=== PATIENT | female | born 1985 | race Caucasian/White ===

== ENCOUNTER 2018-11-23 13:48 | Emergency (ER) | payer OTHER, MEDICAID, SELFPAY ==
[2018-11-23 13:53] VITALS: BP 132/86; PULSE 108; RESP 20; TEMP 36.9; O2SAT 97; BMI 33.3
[2018-11-23 14:14] LABS: Appearance Urine UA SL CLOUDY; Bilirubin Urine UA NEGATIVE (NEGATIVE); Color Urine UA YELLOW; Glucose Urine UA NEGATIVE (Negative); Ketones Urine UA NEGATIVE (NEGATIVE); Leukocyte Esterase Urine UA 2+ (NEGATIVE); Nitrite Urine UA NEGATIVE (Negative); Occult Blood Urine UA TRACE-LYSED (Negative); Protein Urine UA NEGATIVE (Negative); Specific Gravity Urine UA >=1.030 (1.000-1.035); Urobilinogen Urine UA 0.2 E.U./dL (0.2)
[2018-11-23 14:23] LABS: RBC Urine 1-5/HPF (0-5/HPF); WBC Urine 10-30/HPF (0-5/HPF)
[2018-11-23 14:24] LABS: Bacteria Urine Moderate (10-30); Mucus Urine 2+ (Negative); Squamous Epithelial Cell Urine 10-30 /HPF
[2018-11-23 15:30] VITALS: BP 128/76; PULSE 88; RESP 17; TEMP 37.3; O2SAT 99
--- NOTE | 2018-11-23 15:46 | PC.NURSE ---
Right ear pain and sinus pressure for several months. Was treated with antibiotics, steroids, and antihistamines and improved, but recently got worse again within last few days.
[2018-11-23 16:16] LABS: RBC Urine None Seen (0-5/HPF)
[2018-11-23 16:28] LABS: Squamous Epithelial Cell Urine 1-5 /HPF; WBC Urine 5-10/HPF (0-5/HPF)
--- NOTE | 2018-11-23 16:28 | ED.EAR ---
HPI - Ear Problem General Chief complaint: Ear Stated complaint: EAR INFECTION,RT SIDE,YEAST INFECTION Time Seen by Provider: 11/23/18 13:59 Source: patient Mode of arrival: ambulatory Limitations: no limitations History of Present Illness HPI Narrative: Patient complains of fullness and discomfort in her right ear. She states that she has been having the symptoms for about the last several months, but that only recently which she diagnosed ear infection. She states she finished her and steroids about week ago, but feels symptoms are getting worse again. She denies fever. She does admit to smoking cigarettes, and states that she is ?allergic to everything?. Patient states she has not seen ENT specialist doctor and the would be Emergency Department for her care. She states that she does not feel as though she an upper respiratory infection right now, but that she is congested. She states she has been congested for about the last 6 months. She states she is still smoking but is only smoking half a cigarette per day because it makes her feel bad. Patient does note that she has been somewhat lightheaded, the smoking also seems to make this worse. No vertigo. Patient states that she also feels as though she may have a yeast infection vaginally. She states she has had vaginal discharge and itching since near the end of her antibiotic course. She is also concerned that she may have a urinary tract infection, because her low back hurts. She denies dysuria however. No other complaints at this time. Related Data Home Medications Medication Instructions Recorded Confirmed [OTC COLD MEDICINE] #0 11/12/17 06/25/18 Previous Rx's Medication Instructions Recorded albuterol sulfate [Proventil HFA] 2 puff IH Q6HP PRN #1 inh 05/16/17 cyclobenzaprine 5 mg PO Q8HP PRN #10 tab 02/20/18 fluconazole 150 mg tablet 150 mg PO ONCE #2 tab 07/29/18 permethrin 5 % topical cream 1 applictn TOP ONCE #60 gram 07/30/18 sulfamethoxazole-trimethoprim 1 tab PO BID #14 tab 11/23/18 [Bactrim DS] Allergies Allergy/AdvReac Type Severity Reaction Status Date / Time erythromycin base Allergy Mild HIVES Verified 06/25/18 10:02 [ERYTHROMYCIN BASE] latex [LATEX] Allergy Mild RASH Verified 06/25/18 10:02 Review of Systems Review of Systems All systems reviewed & are unremarkable except as noted in HPI and below Constitutional Denies chills, Denies fever(s), Denies lethargy and Denies weakness Eyes Denies change in vision, Denies eye discharge, Denies irritation and Denies loss of vision ENT Ears, Nose, Mouth, and Throat: Denies change in voice, Denies neck pain and Denies sore throat Comments: Ear pain Cardiovascular Denies chest pain, Denies irregular heart rhythm, Reports lightheadedness, Denies palpitations, Denies dyspnea, Denies dyspnea on exertion and Denies orthopnea Respiratory Denies cough, Denies dyspnea, Denies dyspnea on exertion and Denies wheezing Gastrointestinal Gastrointestinal: Denies abdominal pain, Denies change in bowel habits, Denies diarrhea, Denies nausea and Denies vomiting Genitourinary Denies hematuria, Denies flank pain, Denies urinary incontinence and Denies urinary urgency Musculoskeletal Denies neck pain Integumentary/Breasts Denies pruritus, Denies erythema, Denies rash and Denies wounds Neurologic Denies confusion, Denies loss of vision and Denies weakness Psychiatric Denies anxiety, Denies confusion, Denies depression, Denies homicidal ideation and Denies suicidal ideation Endocrine Denies palpitations Hematologic/Lymphatic Denies easy bruising Allergic/Immunologic Denies wheezing [facility] Medical History Ankle pain (Chronic 2009) Anxiety (Chronic) Asthma (Chronic 2009) Bipolar disorder (Chronic ~2009) Depression (Chronic) Foot pain (Chronic 2011) Hayfever (Chronic 1989) Herpes (Chronic 2011) Chicken pox (Resolved) Gestational diabetes (Resolved 2012) Surgical History Status post delivery (Resolved 04/19/12) Status post delivery (Resolved 07/15/13) Family History Brother Age: 36 Asthma Father Age: 56 Diabetes mellitus Hypertension High cholesterol Mother No problems noted. Sister No problems noted. Social History Smoking Status: Current every day smoker Exam Initial Vital Signs Initial Vital Signs: Vital Signs Temperature 98.4 F 11/23/18 13:53 Pulse Rate 108 H 11/23/18 13:53 Respiratory Rate 20 11/23/18 13:53 Blood Pressure 132/86 11/23/18 13:53 Pulse Oximetry 97 11/23/18 13:53 Const General: cooperative and well developed Nutritional Appearance: well nourished Orientation: alert, awake, oriented x3 and not confused [facility] Head: normocephalic and atraumatic Ears: external ears normal and TM's normal bilaterally Nose: external nose normal and No nasal discharge Face and sinus: sinuses nontender, face symmetric, no sinus tenderness and No dry mucous membranes Mouth: oral mucosae normal and moist mucous membranes Teeth and gingiva: dentition normal Eyes General: appearance normal, both eyes and all related structures Eyelids: eyelids normal Conjunctivae: conjunctivae normal Sclera: sclerae normal Pupils: PERRL EOM: EOM intact bilaterally Neck Neck: normal visual inspection, trachea midline, No lymphadenopathy, No midline deformity and No JVD Lymphatic: No lymphedema Chest Chest: normal inspection of the chest Resp Effort & Inspection: normal respiratory effort, able to speak in complete sentences, no respiratory distress and no use of accessory muscles Auscultation: clear to auscultation bilaterally, no rales, no rhonchi and no wheezes Cardio Rate: regular rate Rhythm: regular rhythm Heart Sounds: no click, no gallops, no murmurs and no rubs Pulses: normal peripheral pulses GI Inspection: non-distended Palpation: soft, no hepatosplenomegaly, No guarding, No pulsatile mass and No tender Back/Spine/Pelvis Back: No CVA tenderness Cervical Spine: cervical ROM normal and No pain with cervical ROM Thoracic/Lumbar Spine: thoracic and lumbar spine normal to inspection Skin General: no rashes or lesions noted, No jaundice and No petechiae Neuro General: alert, oriented x3, gait normal and no focal motor deficits Speech: speech normal Extrem General: full ROM, no clubbing, cyanosis or edema, no pedal edema and no calf tenderness Psych Appearance: well kempt Mental Status: mental status grossly normal Attitude: cooperative Thought Content: normal and suicidality Judgment: judgment good Course Course Narrative: Patient was treated presumptively for yeast infection, given her recent antibiotic course, but was also found to have findings on UA consistent probable UTI, especially given her back pain and discomfort. I started her on a course of antibiotics for this as well. Patient is advised follow-up with her primary care physician, and we have discussed the usual indications for return. Orders Ordered: Discontinued Medications Fluconazole (Diflucan) 150 mg PO NOW ONE Stop: 11/23/18 16:29 Last Admin: 11/23/18 16:58 Dose: 150 mg Vital Signs - 8 hr 11/23/18 13:53 11/23/18 15:30 Temperature 98.4 F 99.1 F Pulse Rate 108 H 88 Respiratory Rate 20 17 Blood Pressure 132/86 Blood Pressure [Left Arm] 128/76 Pulse Oximetry 97 99 Medical Decision Making Medical Records Medical records reviewed: Yes I reviewed the patient's medical records. Lab Data Lab results reviewed: Yes I reviewed the patient's lab results. Lab Results 11/23/18 11/23/18 Range/Units 13:55 15:45 Urine Color Yellow Urine Appearance Sl cloudy Urine pH 5.0 (4.5-8.0) Ur Specific Caney >=1.030 H (1.000-1.035) Urine Protein Negative (Negative) Urine Glucose (UA) Negative (Negative) g/dL Urine Ketones Negative (NEGATIVE) Urine Occult Blood Trace-lysed (Negative) Urine Nitrate Negative (Negative) Urine Bilirubin Negative (NEGATIVE) Urine Urobilinogen 0.2 (0.2) E.U./dL Ur Leukocyte Esterase 2+ H (NEGATIVE) Urine RBC 1-5/hpf None seen (0-5/HPF) Urine WBC 10-30/hpf H 5-10/hpf H (0-5/HPF) Ur Squamous Epith Cells 10-30 /hpf H 1-5 /hpf D Amorphous Sediment 2+ Urine Bacteria Moderate (10-30) H Moderate (10-30) H (None) Urine Mucus 2+ H 2+ H (Negative) Ur Culture Indicated? Not Reportable Specimen cultured Micro UA Comment Not Reportable Point of Care Testing Test Results Negative Urine Dip Bedside Urine Glucose Negative Bedside Urine Bilirubin + 1 Bedside Urine Ketone +/- 5 Urine Specific Caney 1.030 Bedside Urine Occult Blood - Negative Bedside Urine pH 5.0 Bedside Urine Protein +/- 15 Bedside Urine Urobilinogen 1+ 2mg Bedside Urine Nitrite - Negative Bedside Urine Leukocytes +++ 500 Esterase Point of care testing: Point of Care Testing Test Results Negative Urine Dip Bedside Urine Glucose Negative Bedside Urine Bilirubin + 1 Bedside Urine Ketone +/- 5 Urine Specific Caney 1.030 Bedside Urine Occult Blood - Negative Bedside Urine pH 5.0 Bedside Urine Protein +/- 15 Bedside Urine Urobilinogen 1+ 2mg Bedside Urine Nitrite - Negative Bedside Urine Leukocytes +++ 500 Esterase Discharge Plan Departure Patient Disposition: Home Clinical Impression: UTI (urinary tract infection), Yeast infection Discharge Date/Time: 11/23/18 17:22 Interventions: ED Discharge Assessment Last Done: 11/23/18 17:22 Instructions: DI for Vaginal Yeast Infection, DI for Urinary Tract Infection (UTI) Prescriptions: New sulfamethoxazole-trimethoprim [Bactrim DS] 800-160 mg tablet 1 tab PO BID Qty: 14 RF: 0 No Action albuterol sulfate [Proventil HFA] 90 MCG/PUFF HFA aerosol inhaler 2 puff IH Q6HP PRNQty: 1 RF: 2 [OTC COLD MEDICINE] Qty: 0 RF: 0 cyclobenzaprine 5 MG tablet 5 mg PO Q8HP PRNQty: 10 RF: 0 fluconazole [Diflucan] 150 mg tablet 150 mg PO ONCE Qty: 2 RF: 0 permethrin 5 % cream 1 applictn TOP ONCE Qty: 60 RF: 0 Referrals: Jonas De Luna MD [Primary Care Provider] -
[2018-11-23 16:29] LABS: Amorphous Sediment Urine 2+; Bacteria Urine Moderate (10-30); Culture Indicated Urine Specimen Cultured; Mucus Urine 2+ (Negative)
[2018-11-23] MEDS: FLUCONAZOLE 150 MG TABLET PO (16:58)
[2018-11-23 17:19] VITALS: BP 128/78; PULSE 83; RESP 14; O2SAT 100
== END 2018-11-23 17:22 | disposition home or self-care (01) ==
PROVIDERS: Emergency Provider Emergency Medicine; PCP Family Medicine
DX: N39.0 Urinary tract infection, site not specified (principal); B37.9 Candidiasis, unspecified
CPT/HCPCS: 81001; 81003; 81015; 81025; 87077; 87086; 99283

== ENCOUNTER 2019-01-26 08:41 | Emergency (ER) | payer OTHER, MEDICAID, SELFPAY ==
[2019-01-26 09:03] VITALS: BP 141/99; PULSE 120; RESP 20; TEMP 36.7; O2SAT 100; BMI 30.7
--- NOTE | 2019-01-26 09:37 | ED_ITS ---
HPI - Fever General Chief Complaint: Fever Stated Complaint: fever,coughing,sore on knee/back of head Time Seen by Provider: 01/26/19 09:00 Source: patient Mode of arrival: ambulatory Limitations: no limitations History of Present Illness HPI Narrative: Patient is a 33-year-old female who presents sobriety of complaints. Mostly upper respiratory symptoms of runny nose cough is congestion. This been ongoing for about a week she was seen evaluated [facility] for the same was not given any antibiotics at that time. Just wanted to be re-evaluated. She does not feel like she is getting any better. She also now has a spot is in the back of her head and scalp and also on her knee. As she says the very tender to touch. She fell in her bathroom while cleaning about a week ago is and her left knee she has some pain is an drainage. There is also a scabbed over part of her scalp is not draining but she says is very tender. MD complaint: fever, malaise and weakness Related Data Home Medications Medication Instructions Recorded Confirmed [OTC COLD MEDICINE] #0 11/12/17 06/25/18 Previous Rx's Medication Instructions Recorded albuterol sulfate [Proventil HFA] 2 puff IH Q6HP PRN #1 inh 05/16/17 cyclobenzaprine 5 mg PO Q8HP PRN #10 tab 02/20/18 fluconazole 150 mg tablet 150 mg PO ONCE #2 tab 07/29/18 permethrin 5 % topical cream 1 applictn TOP ONCE #60 gram 07/30/18 sulfamethoxazole-trimethoprim 1 tab PO BID #14 tab 11/23/18 [Bactrim DS] Allergies Allergy/AdvReac Type Severity Reaction Status Date / Time erythromycin base Allergy Mild HIVES Verified 01/26/19 09:08 [ERYTHROMYCIN BASE] latex [LATEX] Allergy Mild RASH Verified 01/26/19 09:08 Review of Systems Review of Systems ROS Unobtainable: All systems reviewed & are unremarkable except as noted in HPI and below Constitutional Reports body ache(s), Reports chills, Reports fatigue and Reports fever(s) Eyes Denies change in vision, Denies eye discharge, Denies irritation and Denies loss of vision ENT Ears, Nose, Mouth, and Throat: Denies change in voice, Denies neck pain and Denies sore throat Cardiovascular Denies dyspnea and Denies dyspnea on exertion Respiratory Denies cough, Denies dyspnea, Denies dyspnea on exertion and Denies wheezing Gastrointestinal Gastrointestinal: Denies abdominal pain, Denies change in bowel habits, Denies diarrhea, Denies nausea and Denies vomiting Musculoskeletal Denies neck pain Integumentary/Breasts Reports as per HPI Neurologic Denies loss of vision Endocrine Reports fatigue Allergic/Immunologic Denies wheezing [facility] Social History Smoking Status: Current every day smoker Exam Initial Vital Signs Initial Vital Signs: Vital Signs Temperature 98.1 F 01/26/19 09:03 Pulse Rate 120 H 01/26/19 09:03 Respiratory Rate 20 01/26/19 09:03 Blood Pressure 141/99 H 01/26/19 09:03 Pulse Oximetry 100 01/26/19 09:03 GENERAL: Well-appearing, well-nourished and in no acute distress. HEENT: Head atraumatic,EOMI, pupils reactive, face symmetric, moist mucous membranes EARS: Tympanic membranes visualized, no erythema or bulging, no hemotympanum PHARYNX: No erythema, no tonsillar exudate, no cervical lymphadenopathy CARDIOVASCULAR: Regular rate and rhythm without murmurs, rubs or gallops. RESPIRATORY: Breath sounds equal bilaterally, no wheezes rales or rhonchi. ABDOMEN: Soft, nontender. Normoactive bowel sounds all 4 quadrants. No guarding or rebound. EXTREMITIES: Normal range of motion, no clubbing or edema. Neurovascularly intact NEUROLOGICAL: Alert and oriented x4.Normal gait and speech. Cranial nerves II through XII grossly intact. SKIN: Left knee no erythema no fluctuation is. She does have small abrasions seems to be healing. Scalp area left side small scabbed over region no fluctuation no erythema tender to touch home no drainable abscess. Course Orders Ordered: ED Orders 01/26/19 09:19 Influenza A and B by PCR Rapid Stat Vital Signs - 8 hr 01/26/19 09:03 Temperature 98.1 F Pulse Rate 120 H Respiratory Rate 20 Blood Pressure 141/99 H Pulse Oximetry 100 MDM - Fever Lab Data Lab Results 01/26/19 Range/Units 09:19 Influenza A & B (PCR) Negative (Negative) Discharge Plan Departure Patient Disposition: Home Clinical Impression: Acute upper respiratory infection Discharge Date/Time: 01/26/19 10:10 Interventions: ED Discharge Assessment Last Done: 01/26/19 10:10 Instructions: DI for Viral Upper Respiratory Infection -- Adult Activity Restrictions/Additional Instructions: *You have been diagnosed with upper respiratory infection *What to do: At this time no need for antibiotics. Recommend applying antibiotic ointment to both me and scalp 1-2 times daily to help with healing. *Continue to take medications as directed *Follow up with your primary care provider in 2-3 days *Return to ER if you should have worsening cough, difficulty breathing, fever not controlled, redness around sores or any new, worsening or concerning symptoms Prescriptions: No Action albuterol sulfate [Proventil HFA] 90 MCG/PUFF HFA aerosol inhaler 2 puff IH Q6HP PRNQty: 1 RF: 2 [OTC COLD MEDICINE] Qty: 0 RF: 0 cyclobenzaprine 5 MG tablet 5 mg PO Q8HP PRNQty: 10 RF: 0 fluconazole [Diflucan] 150 mg tablet 150 mg PO ONCE Qty: 2 RF: 0 permethrin 5 % cream 1 applictn TOP ONCE Qty: 60 RF: 0 sulfamethoxazole-trimethoprim [Bactrim DS] 800-160 mg tablet 1 tab PO BID Qty: 14 RF: 0 Referrals: Jonas De Luna MD [Primary Care Provider] - Stand Alone Forms: Work Release Note
[2019-01-26 09:50] LABS: Influenza A and B by PCR Rapid Negative (Negative)
== END 2019-01-26 10:10 | disposition home or self-care (01) ==
LOC: ED 10:07
PROVIDERS: Emergency Provider Emergency Medicine; PCP Family Medicine
DX: J06.9 Acute upper respiratory infection, unspecified (principal)
CPT/HCPCS: 36415; 87400; 99282

== ENCOUNTER → 2019-02-17 08:31 | Outpatient (CLI) | payer OTHER, MEDICAID, SELFPAY ==
[2019-02-17 08:39] LABS: RBC Urine None Seen (0-5/HPF)
[2019-02-17 09:03] LABS: Appearance Urine UA SL CLOUDY; Bilirubin Urine UA NEGATIVE (NEGATIVE); Color Urine UA YELLOW; Glucose Urine UA NEGATIVE (Negative); Ketones Urine UA NEGATIVE (NEGATIVE); Leukocyte Esterase Urine UA 1+ (NEGATIVE); Nitrite Urine UA NEGATIVE (Negative); Occult Blood Urine UA NEGATIVE (Negative); Protein Urine UA NEGATIVE (Negative); Urobilinogen Urine UA 0.2 E.U./dL (0.2)
[2019-02-17 09:05] LABS: Add Manual Diff / Slide Review NO; Basophils Absolute Auto 0 /uL (0-100); Basophils Percent Auto 0.5 % (0-2); Eosinophils Absolute Auto 200 /uL (0-450); Eosinophils Percent Auto 2.9 % (2-4); Hematocrit 40.8 % (36-46); Hemoglobin 13.8 g/dL (12.0-16.0); Lymphocytes Absolute Auto 2100 /uL (1100-4500); Lymphocytes Percent Auto 34.5 % (25-40); Mean Corpuscular HGB Conc 33.9 % (30-36); Mean Corpuscular Hemoglobin 30.7 PG (26-34); Mean Corpuscular Volume 90.6 fL (80-100); Monocytes Absolute Auto 400 /uL (0-900); Monocytes Percent Auto 6.7 % (3-14); Neutrophils Absolute Auto 3400 /uL (1500-7000); Neutrophils Percent Auto 55.4 % (50-75); Platelet Count 270 X10^3/uL (150-400); Red Blood Cell Count 4.51 X10^6/uL (4.0-5.2); Red Cell Distribution Width 14.3 % (11.6-14.8)
[2019-02-17 09:09] LABS: Alanine Aminotransferase 44 IU/L (9-52); Albumin 4.3 g/dL (3.5-5.0); Albumin Globulin Ratio 1.4 (1.0-2.8); Alkaline Phosphatase 76 U/L (38-126); Aspartate Aminotransferase 30 IU/L (14-36); Bilirubin Total 0.5 mg/dL (0.2-1.3); Blood Urea Nitrogen 16 mg/dL (7-17); Calcium 9.2 mg/dL (8.4-10.2); Carbon Dioxide 25 mmol/L (22-32); Chloride 103 mmol/L (98-107); Estimated Glomerular Filt Rate > 60.0 mL/min (>60); Globulin 3.1 g/dL (1.7-4.1); Glucose 68 mg/dL (70-100); HEMOLYSIS < 15 (0-50); Potassium 4.6 mmol/L (3.4-5.1); Sodium 137 mmol/L (137-145); Total Protein 7.4 g/dL (6.3-8.2)
[2019-02-17 09:11] LABS: Bacteria Urine Moderate (10-30); Culture Indicated Urine Specimen Cultured; Squamous Epithelial Cell Urine 1-5 /HPF; WBC Urine 30-100/HPF (0-5/HPF)
== END ==
PROVIDERS: PCP Family Medicine; Visit Provider Family Medicine
DX: R30.0 Dysuria (principal); J06.9 Acute upper respiratory infection, unspecified; R31.9 Hematuria, unspecified
CPT/HCPCS: 36415; 80053; 81001; 85025; 87077; 87086; 87186

== ENCOUNTER 2019-10-02 10:50 | Emergency (ER) | payer OTHER, MEDICAID, SELFPAY ==
[2019-10-02 11:14] VITALS: BP 101/67; PULSE 89; RESP 14; TEMP 36.7; O2SAT 98
--- NOTE | 2019-10-02 11:51 | ED.LOWEXIN ---
HPI - Extremity Injury (Lower) <PATRIZIA Fung - Last Filed: 10/02/19 15:53> General Chief Complaint: Extremity Injury, Lower Stated Complaint: big toes hurting both feet and crushed her toes Time Seen by Provider: 10/02/19 11:43 Source: patient Mode of arrival: Ambulatory Limitations: no limitations History of Present Illness HPI Narrative: The patient is a 33-year-old female current smoker with history of bipolar to presents with a chief complaint of bilateral toe pain. She states that she crushed her feet between a door approximately 3-4 days ago. She has taken a few doses of Tylenol for this she states that she accidentally ripped her toenails up, denies any fevers nausea vomiting or diarrhea. She states her tetanus is up-to-date within the past 5 years. She is concerned about developing infection where she wrapped up her toenails. She states she is able to ambulate and bear weight. She has not rested, iced or elevated her feet. Related Data Previous Rx's Medication Instructions Recorded cetirizine 10 mg tablet 10 mg PO DAILY #90 tab 05/12/19 cyclobenzaprine 10 mg tablet 10 mg PO BEDTIME #30 tab 06/01/19 clonidine HCl 0.2 mg tablet 0.2 mg PO BID #60 tab 07/29/19 risperidone 1 mg tablet 1 mg PO BEDTIME #30 tab 07/29/19 albuterol sulfate 90 mcg/actuation 2 puff INHALATION Q6HP PRN #1 09/01/19 aerosol inhaler inhalation albuterol sulfate 2.5 mg INHALATION Q4-6H PRN #90 ml 09/02/19 Allergies Allergy/AdvReac Type Severity Reaction Status Date / Time erythromycin base Allergy Mild HIVES Verified 10/02/19 11:19 [ERYTHROMYCIN BASE] latex [LATEX] Allergy Mild RASH Verified 10/02/19 11:19 Review of Systems <PATRIZIA Fung - Last Filed: 10/02/19 15:53> Review of Systems Narrative: GENERAL: Denies chills, fatigue, malaise, fever, sweats. HEENT: Denies sinus pain, ear pain, sore throat, difficulty swallowing, dizziness. RESPIRATORY: Denies dyspnea, cough, wheezing, hemoptysis, sputum. CARDIOVASCULAR: Denies chest pain, palpitations, orthopnea, edema, GASTROINTESTINAL: Denies nausea, vomiting, abdominal pain, diarrhea, constipation, melena. : Denies dysuria, frequency, incontinence, hematuria, urinary retention. MUSCULOSKELETAL: See HPI SKIN: See HPI NEUROLOGIC: Denies weakness, headache, numbness, change in speech, confusion, seizures, incoordination. PSYCHIATRIC: No concerning psychosocial issues. 12 point review of systems is negative except for those stated above Patient History <PATRIZIA Fung - Last Filed: 10/02/19 15:53> Medical History Ankle pain (Chronic 2009) Anxiety (Chronic) Asthma (Chronic 2009) Bipolar disorder (Chronic ~2009) Chicken pox (Resolved) Depression (Chronic) Foot pain (Chronic 2011) Gestational diabetes (Resolved 2012) Hayfever (Chronic 1989) Herpes (Chronic 2011) Surgical History Status post delivery (Resolved 04/19/12) Status post delivery (Resolved 07/15/13) Family History Brother Age: 37 Asthma Father Age: 57 Diabetes mellitus Hypertension High cholesterol Mother No problems noted. Sister No problems noted. Social History marital status: Smoking Status: Current every day smoker alcohol intake: current (ON OCCASION ) substance use type: does not use alcohol intake frequency: a few times a month Substance Use Type: does not use Exam <PATRIZIA Fung - Last Filed: 10/02/19 15:53> Narrative Exam Narrative: GENERAL: This is a well-nourished, well-developed patient, in no acute distress HEAD: Atraumatic. Normocephalic. No temporal or scalp tenderness. EYES: Pupils equal round and reactive. Extraocular motions intact. No scleral icterus. No injection or drainage. ENT: Nose without bleeding, purulent drainage or septal hematoma. Throat without erythema, tonsillar hypertrophy or exudate. Uvula midline. Airway patent. NECK: Trachea midline. No JVD or lymphadenopathy. Supple, nontender, no meningeal signs. CARDIOVASCULAR: Regular rate and rhythm RESPIRATORY: No cough. No increased respiratory effort. No accessory muscle use. EXTREMITIES: Positive pedal pulses bilaterally. Able to flex and extend bilateral toes. Capillary refill less than 2 seconds. No pain to palpation bilateral feet or navicular. BACK: Nontender without deformity or crepitance. No flank tenderness. NEURO: AOx3. SKIN: Diffuse ecchymosis noted over bilateral great toes. Skin is intact. Dried blood noted lateral aspect right great toenail. No spreading erythema or drainage noted Initial Vital Signs Initial Vital Signs: Vital Signs Temperature 98.1 F 10/02/19 11:14 Pulse Rate 89 10/02/19 11:14 Respiratory Rate 14 10/02/19 11:14 Blood Pressure 101/67 10/02/19 11:14 Pulse Oximetry 98 10/02/19 11:14 <Steve Tony DO - Last Filed: 10/03/19 09:21> Initial Vital Signs Initial Vital Signs: Vital Signs Temperature 98.1 F 10/02/19 11:14 Pulse Rate 89 10/02/19 11:14 Respiratory Rate 14 10/02/19 11:14 Blood Pressure 101/67 10/02/19 11:14 Pulse Oximetry 98 10/02/19 11:14 Course <PATRIZIA Fung - Last Filed: 10/02/19 15:53> Vital Signs Vital signs: Vital Signs - 8 hr 10/02/19 11:14 10/02/19 12:15 Temperature 98.1 F 98.2 F Pulse Rate 89 72 Respiratory Rate 14 16 Blood Pressure 101/67 Blood Pressure [Right Arm] 122/68 Pulse Oximetry 98 98 <Steve Tony DO - Last Filed: 10/03/19 09:21> Vital Signs Vital signs: Vital Signs - 8 hr 10/02/19 11:14 10/02/19 12:15 Temperature 98.1 F 98.2 F Pulse Rate 89 72 Respiratory Rate 14 16 Blood Pressure 101/67 Blood Pressure [Right Arm] 122/68 Pulse Oximetry 98 98 MDM - Extremity Injury (Lower) <PATRIZIA Fung - Last Filed: 10/02/19 15:53> MDM Narrative Medical decision making narrative: The patient is a 33-year-old female who presents with a chief complaint of bilateral foot pain. Her tetanus is up-to-date. She has no signs of infection on her feet. I discussed the pros and cons of an x-ray with her at this point time, but she declines x-ray. Given that she is , I am okay with this and we discussed the risks and benefits of radiation. I discussed rest, Tylenol, Epsom salt soaks etc. Encourage PCP follow-up. Patient has no questions or concerns upon discharge. Discharge Plan Departure Patient Disposition: Home Clinical Impression: Bilateral foot pain Discharge Date/Time: 10/02/19 12:20 Instructions: How To Perform RICE (Rest, Ice, Compress, Elevate), DI for Foot Pain Activity Restrictions/Additional Instructions: As discussed, have elected to hold off on x-rays due to radiation as you are . Please use rest ice compression elevation. I also suggest Epsom salt soaks to help prevent nail bed infections. Please follow up with primary care provider next few days. Please watch out for inability to bear weight or any other acute concerns. Etc. Prescriptions: No Action cetirizine 10 mg tablet 10 mg PO DAILY Qty: 90 RF: 3 cyclobenzaprine 10 mg tablet 10 mg PO BEDTIME Qty: 30 RF: 0 clonidine HCl 0.2 mg tablet 0.2 mg PO BID Qty: 60 RF: 3 risperidone 1 mg tablet 1 mg PO BEDTIME Qty: 30 RF: 3 albuterol sulfate 2.5 mg /3 mL (0.083 %) solution for nebulization 2.5 mg INHALATION Q4-6H PRN (Reason: bronchospasm) Qty: 90 RF: 0 albuterol sulfate [Proventil HFA] 90 mcg/actuation HFA aerosol inhaler 2 puff inhalation Q6HP PRN (Reason: shortness of breath or wheezing) Qty: 1 RF: 11 Referrals: Jonas De Luna MD [Primary Care Provider] -
[2019-10-02 12:15] VITALS: BP 122/68; PULSE 72; RESP 16; TEMP 36.8; O2SAT 98
== END 2019-10-02 12:20 | disposition home or self-care (01) ==
PROVIDERS: Emergency Provider Nurse Practitioner Family; PCP Family Medicine
DX: M79.671 Pain in right foot (principal); M79.672 Pain in left foot; W23.0XXA Caught, crushed, jammed, or pinched between moving objects, initial encounter
CPT/HCPCS: 99282

== ENCOUNTER → 2019-10-27 13:57 | Outpatient (CLI) | payer OTHER, MEDICAID, SELFPAY ==
--- NOTE | 2019-10-27 13:58 | DI.US.S_ITS ---
PROCEDURE: US OB >= 14 WEEKS FETUS INDICATIONS: DATES OUTSIDE/PRIOR DATING DATA: Last menstrual period (LMP): 06/26/19. LMP-based estimated date of delivery (SRI): 04/01/20. First dating scan (date and location): 10/27/19. Estimated date of delivery (SRI) from first dating scan: 03/11/20. TECHNIQUE: Real-time scanning was performed of the fetus, with image documentation and biometric measurements. COMPARISON: None. FINDINGS: General: A single living intrauterine gestation is present. Presentation: Vertex. Placenta: Placental position is fundal, without previa. Amniotic fluid index: 17.9 cm, normal range is 5-24 cm. heart rate: 155 beats per minute. Maternal cervical canal: 3.5 cm long. Normal lower limit is 2.5 cm. biometrics: Biparietal diameter: 20 weeks 2 days Head circumference: 20 weeks 1 day Abdominal circumference: 20 weeks 4 days Femur length: 21 weeks 3 days Estimated gestational age from initial scan: not applicable. Composite gestational age from present scan: 20 weeks 4 days Estimated weight and percentile: 381 g Measurement variability for biometric dating: +/- 7 days from 14 weeks to 15 weeks 6 days gestation, +/- 10 days from 16 weeks to 21 weeks 6 days gestation, +/- 2 weeks from 22 weeks to 27 weeks 6 days gestation, +/- 3 weeks for 28 weeks gestation or later. weight reference: 4500 g or EFW >90/95% is considered macrosomia or large for gestational age. EFW <10% is small for gestational age. EFW 5% or less is considered intra-uterine growth restriction. Anatomic survey: Neuro: Ventricles are non-dilated at less than 10 mm. Cisterna magna is normal at 3-11 mm. Cerebellum is normal in size and morphology. Nuchal skin fold: Normal at less than 6 mm between 14-21 weeks gestational age. Face: Nose and lips, facial profile are normal. Spine: No evidence for spina bifida. Heart: 4-chambered heart is present, with normal ventricular outflow tracts. Diaphragm: Diaphragm is intact. Stomach: Left-sided stomach is present. Kidneys: No hydronephrosis. Normal is less than 5 mm in 2nd trimester, less than 7 mm in 3rd trimester. Cord: 3-vessel cord has orthotopic insertion. Bladder: Normal in size. Extremities: All 4 extremities identified. IMPRESSION: 1. Valdes IUP with mean composite gestational age of 20 weeks 4 days corresponding to ultrasound SRI of 03/11/20. 2. Normal anatomic survey. Dictated by: Ja NEGRETE Interpreted: Lesly Sanchez MD on 10/27/2019 at 15:20 Approved by: Lesly Sanchez M.D. on 10/27/2019 at 15:47
== END ==
PROVIDERS: PCP Family Medicine; Visit Provider Family Medicine
DX: Z34.92 Encounter for supervision of normal pregnancy, unspecified, second trimester (principal); Z3A.20 20 weeks gestation of pregnancy
CPT/HCPCS: 76811

== ENCOUNTER 2019-11-01 15:40 | Emergency (ER) | payer OTHER, MEDICAID, SELFPAY ==
[2019-11-01 16:15] VITALS: BP 138/87; PULSE 90; RESP 18; TEMP 36.7; O2SAT 99
--- NOTE | 2019-11-01 17:45 | PC.NURSE ---
21 weeks , reports headache, itchy throat, fever some nausea and vomiting onset of sxs yesterday, has been taking tylenol 500mg for discomfort and drinking water.
[2019-11-01 18:12] LABS: Influenza A - CEPHEID Flu A NEGATIVE (NEGATIVE); Influenza B - CEPHEID Flu B NEGATIVE (NEGATIVE)
[2019-11-01] MEDS: ONDANSETRON 4 MG ODT SL (18:18)
[2019-11-01] MEDS: ACETAMINOPHEN 325 MG TABLET 975 MG PO (18:18)
--- NOTE | 2019-11-01 18:27 | ED_ITS ---
HPI - Headache <PATRIZIA Fung - Last Filed: 11/01/19 20:11> General Chief Complaint: Headache Stated Complaint: really bad headache 2 days Time Seen by Provider: 11/01/19 17:50 Source: patient Mode of arrival: Ambulatory Limitations: no limitations History of Present Illness HPI Narrative: The patient is a 33-year-old female current smoker with history of bipolar 2 who presents with a chief complaint of frontal headache. She is 21 weeks at this point time. She states she has taken 500 mg of Tylenol for her headache, most recently at 10:00 a.m.. She also complains of sore throat, and some chills. She was nauseous, earlier today and had an episode of vomiting. Then she a in [place] muffin and mcnair and was able to keep down. She denies any abdominal pain. She denies any shortness of breath or chest pain. The patient denies any healing of lytes, blurry vision, double vision or light flashing. She states that the headache is not incapacitating. Related Data Previous Rx's Medication Instructions Recorded clonidine HCl 0.2 mg tablet 0.2 mg PO BID #60 tab 07/29/19 risperidone 1 mg tablet 1 mg PO BEDTIME #30 tab 07/29/19 albuterol sulfate 90 mcg/actuation 2 puff INHALATION Q6HP PRN #1 09/01/19 aerosol inhaler inhalation albuterol sulfate 2.5 mg INHALATION Q4-6H PRN #90 ml 09/02/19 cetirizine 10 mg tablet 10 mg PO DAILY #90 tab 10/26/19 prenat.vits,cristopher,[id number] 1 tab PO DAILY #90 tab 10/27/19 Allergies Allergy/AdvReac Type Severity Reaction Status Date / Time erythromycin base Allergy Mild HIVES Verified 10/26/19 14:02 [ERYTHROMYCIN BASE] latex [LATEX] Allergy Mild RASH Verified 10/26/19 14:02 Review of Systems <PATRIZIA Fung - Last Filed: 11/01/19 20:11> Review of Systems Narrative: GENERAL: Denies chills, fatigue, malaise, fever, sweats. HEENT: See HPI. RESPIRATORY: Denies dyspnea, cough, wheezing, hemoptysis, sputum. CARDIOVASCULAR: Denies chest pain, palpitations, orthopnea, edema, GASTROINTESTINAL: Denies nausea, vomiting, abdominal pain, diarrhea, constipation, melena. : Denies dysuria, frequency, incontinence, hematuria, urinary retention. MUSCULOSKELETAL: denies weakness, joint pain, or bony pain SKIN: Denies rash, skin lesions, or other NEUROLOGIC: See HPI PSYCHIATRIC: No concerning psychosocial issues. 12 point review of systems is negative except for those stated above Patient History <PATRIZIA Fung - Last Filed: 11/01/19 20:11> Medical History Ankle pain (Chronic 2009) Anxiety (Chronic) Asthma (Chronic 2009) Bipolar disorder (Chronic ~2009) Chicken pox (Resolved) Depression (Chronic) Foot pain (Chronic 2011) Gestational diabetes (Resolved 2012) Hayfever (Chronic 1989) Herpes (Chronic 2011) Surgical History Status post delivery (Resolved 04/19/12) Status post delivery (Resolved 07/15/13) Family History Brother Age: 37 Asthma Father Age: 57 Diabetes mellitus Hypertension High cholesterol Mother No problems noted. Sister No problems noted. Social History marital status: Smoking Status: Current every day smoker alcohol intake: current (ON OCCASION ) substance use type: does not use Smoking Status: Current every day smoker alcohol intake frequency: a few times a month Substance Use Type: does not use Exam <PATRIZIA Fung - Last Filed: 11/01/19 20:11> Narrative Exam Narrative: GENERAL: This is a well-nourished, well-developed patient, in no acute distress HEAD: Atraumatic. Normocephalic. No temporal or scalp tenderness. EYES: Pupils equal round and reactive. Extraocular motions intact. No scleral icterus. No injection or drainage. ENT: Nose without bleeding, purulent drainage or septal hematoma. Throat without erythema, tonsillar hypertrophy or exudate. Uvula midline. Airway patent. NECK: Trachea midline. No JVD or lymphadenopathy. Supple, nontender, no meningeal signs. CARDIOVASCULAR: Regular rate and rhythm without murmurs, gallops, or rubs. RESPIRATORY: Clear to auscultation. Breath sounds equal bilaterally. No wheezes, rales, or rhonchi. No cough. No increased respiratory effort. No accessory muscle use. GASTROINTESTINAL: Abdomen soft, non-tender, nondistended. No hepato- splenomegaly, or palpable masses. No guarding. EXTREMITIES: No clubbing, cyanosis, or edema. No joint tenderness, effusion, or edema noted. BACK: Nontender without deformity or crepitance. No flank tenderness. NEURO: AOx3. Interactive. Age appropriate. Stable gait. Using all extremities equally. On cell phone. SKIN: No rash or erythema on visible skin Initial Vital Signs Initial Vital Signs: Vital Signs Temperature 98.1 F 11/01/19 16:15 Pulse Rate 90 11/01/19 16:15 Respiratory Rate 18 11/01/19 16:15 Blood Pressure 138/87 11/01/19 16:15 Pulse Oximetry 99 11/01/19 16:15 <Jose Miguel Cho MD - Last Filed: 11/02/19 00:38> Initial Vital Signs Initial Vital Signs: Vital Signs Temperature 98.1 F 11/01/19 16:15 Pulse Rate 90 11/01/19 16:15 Respiratory Rate 18 11/01/19 16:15 Blood Pressure 138/87 11/01/19 16:15 Pulse Oximetry 99 11/01/19 16:15 Course <ALISSON Fung-BC - Last Filed: 11/01/19 20:11> Orders Ordered: ED Orders 11/01/19 17:39 Flu test [Influenza A & B (PCR)] Stat 11/01/19 18:20 Strep Grp A by PCR Rapid Stat Discontinued Medications Acetaminophen (Tylenol) 975 mg PO NOW ONE Stop: 11/01/19 18:11 Last Admin: 11/01/19 18:18 Dose: 975 mg Documented by: MEISENB Ondansetron HCl (Zofran Odt) 4 mg SL NOW ONE Stop: 11/01/19 18:11 Last Admin: 11/01/19 18:18 Dose: 4 mg Documented by: MEISENB Vital Signs Vital signs: Vital Signs - 8 hr 11/01/19 18:42 11/01/19 20:19 Pulse Rate 83 77 Respiratory Rate 16 14 Blood Pressure 131/74 Blood Pressure [Right Arm] 125/73 Pulse Oximetry 96 99 <Jose Miguel Cho MD - Last Filed: 11/02/19 00:38> Orders Ordered: ED Orders 11/01/19 17:39 Flu test [Influenza A & B (PCR)] Stat 11/01/19 18:20 Strep Grp A by PCR Rapid Stat Discontinued Medications Acetaminophen (Tylenol) 975 mg PO NOW ONE Stop: 11/01/19 18:11 Last Admin: 11/01/19 18:18 Dose: 975 mg Documented by: COLTON Ondansetron HCl (Zofran Odt) 4 mg SL NOW ONE Stop: 11/01/19 18:11 Last Admin: 11/01/19 18:18 Dose: 4 mg Documented by: COLTON Vital Signs Vital signs: Vital Signs - 8 hr 11/01/19 18:42 11/01/19 20:19 Pulse Rate 83 77 Respiratory Rate 16 14 Blood Pressure 131/74 Blood Pressure [Right Arm] 125/73 Pulse Oximetry 96 99 MDM - Headache <PATRIZIA Fung - Last Filed: 11/01/19 20:11> Lab Data Labs: Lab Results 11/01/19 11/01/19 Range/Units 17:39 18:20 Influenza A (RT-PCR) Flu a negative (NEGATIVE) Influenza B (RT-PCR) Flu b negative (NEGATIVE) Group A Strep (PCR) Negative Urine Dip Bedside Urine Glucose Negative Bedside Urine Bilirubin - Negative Bedside Urine Ketone - Negative Urine Specific [place] 1.010 Bedside Urine Occult Blood - Negative Bedside Urine pH 6.0 Bedside Urine Protein - Negative Bedside Urine Urobilinogen - Negative Bedside Urine Nitrite - Negative Bedside Urine Leukocytes - Negative Esterase MDM Narrative Medical decision making narrative: The patient is a 33-year-old female who presents with a chief complaint of a headache. She is 21 weeks at this point time. heart tones are in the 150s. She is negative for strep, negative for flu. She was given a single dose of Tylenol and Zofran and felt much improved. Her systolic blood pressures in the 120s, she does not have protein in her urine helping rule out early preeclampsia. Encouraged at length follow up with primary care provider. Discussed at length coming back to the emergency department for any acute concerns. Patient has no questions or concerns upon discharge and states understanding of return precautions as well as follow-up care <Jose Miguel Cho MD - Last Filed: 11/02/19 00:38> Lab Data Labs: Lab Results 11/01/19 11/01/19 Range/Units 17:39 18:20 Influenza A (RT-PCR) Flu a negative (NEGATIVE) Influenza B (RT-PCR) Flu b negative (NEGATIVE) Group A Strep (PCR) Negative Urine Dip Bedside Urine Glucose Negative Bedside Urine Bilirubin - Negative Bedside Urine Ketone - Negative Urine Specific [place] 1.010 Bedside Urine Occult Blood - Negative Bedside Urine pH 6.0 Bedside Urine Protein - Negative Bedside Urine Urobilinogen - Negative Bedside Urine Nitrite - Negative Bedside Urine Leukocytes - Negative Esterase Discharge Plan Departure Patient Disposition: Home Clinical Impression: Headache Qualifiers: Headache type: unspecified Headache chronicity pattern: acute headache Intractability: not intractable Qualified Code(s): R51 - Headache Discharge Date/Time: 11/01/19 20:21 Instructions: DI for Headache Activity Restrictions/Additional Instructions: Thank you for trusting us with your care today. Today we checked for flu strep. These came back negative. Your headache responded well to a single dose of Tylenol. Please push fluids and rest Your urine shows no signs of protein in your urine and blood pressure is good. Please come back to the emergency department for any acute concerns. Please follow-up with primary care provider in the next few days. Prescriptions: No Action clonidine HCl 0.2 mg tablet 0.2 mg PO BID Qty: 60 RF: 3 risperidone 1 mg tablet 1 mg PO BEDTIME Qty: 30 RF: 3 albuterol sulfate 2.5 mg /3 mL (0.083 %) solution for nebulization 2.5 mg INHALATION Q4-6H PRN (Reason: bronchospasm) Qty: 90 RF: 0 cetirizine 10 mg tablet 10 mg PO DAILY Qty: 90 RF: 3 albuterol sulfate [Proventil HFA] 90 mcg/actuation HFA aerosol inhaler 2 puff inhalation Q6HP PRN (Reason: shortness of breath or wheezing) Qty: 1 RF: 11 prenat.vits,cristopher,[id number] Tablet 1 tab PO DAILY Qty: 90 RF: 3 Referrals: Jonas De Luna MD [Primary Care Provider] -
[2019-11-01 18:41] LABS: Strep Grp A by PCR Rapid Negative
[2019-11-01 18:42] VITALS: BP 125/73; PULSE 83; RESP 16; O2SAT 96
[2019-11-01 20:19] VITALS: BP 131/74; PULSE 77; RESP 14; O2SAT 99
== END 2019-11-01 20:21 | disposition home or self-care (01) ==
PROVIDERS: Emergency Provider Nurse Practitioner Family; PCP Family Medicine
DX: R51 Headache (principal)
CPT/HCPCS: 81003; 87502; 87651; 99282

== ENCOUNTER → 2019-11-02 14:03 | Outpatient (CLI) | payer OTHER, MEDICAID, SELFPAY ==
[2019-11-02 14:47] LABS: Add Manual Diff / Slide Review NO; Basophils Absolute Auto 0 /uL (0-100); Basophils Percent Auto 0.2 % (0-2); Eosinophils Absolute Auto 100 /uL (0-450); Hematocrit 40.6 % (36-46); Hemoglobin 14.4 g/dL (12.0-16.0); Lymphocytes Absolute Auto 2100 /uL (1100-4500); Lymphocytes Percent Auto 21.4 % (25-40); Mean Corpuscular HGB Conc 35.4 % (30-36); Mean Corpuscular Hemoglobin 31.5 PG (26-34); Mean Corpuscular Volume 89.2 fL (80-100); Monocytes Absolute Auto 600 /uL (0-900); Monocytes Percent Auto 6.4 % (3-14); Neutrophils Absolute Auto 6900 /uL (1500-7000); Platelet Count 258 X10^3/uL (150-400); Red Blood Cell Count 4.55 X10^6/uL (4.0-5.2); Red Cell Distribution Width 13.1 % (11.6-14.8); White Blood Cell Count 9.7 X10^3/uL (4.5-11.0)
[2019-11-02 15:54] LABS: Appearance Urine UA CLEAR; Bilirubin Urine UA NEGATIVE (NEGATIVE); Color Urine UA YELLOW; Glucose Urine UA NEGATIVE (Negative); Ketones Urine UA NEGATIVE (NEGATIVE); Leukocyte Esterase Urine UA NEGATIVE (NEGATIVE); Nitrite Urine UA NEGATIVE (Negative); Occult Blood Urine UA NEGATIVE (Negative); Protein Urine UA NEGATIVE (Negative); Specific Gravity Urine UA 1.015 (1.000-1.035); Urobilinogen Urine UA 0.2 E.U./dL (0.2)
[2019-11-02 16:05] LABS: pH Urine UA 6.5 (4.5-8.0)
[2019-11-02 20:37] LABS: Hepatitis B Surface Antigen NEGATIVE s/c (NEGATIVE); Rubella Antibody IgG 14.7 IU/mL (>15)
[2019-11-02 20:53] LABS: HIV 1 & 2 Ab/Ag 4th Gen Combo NEGATIVE (NEGATIVE); Hep C Virus Ab w/Reflex Quant NEGATIVE s/c (NEGATIVE)
[2019-11-04 15:56] LABS: RPR Screen Nonreactive (Nonreactive)
[2019-11-05 15:45] LABS: AFP, Serum 43.8 ng/mL; Brief History NTD NG; Calc Gestational Age 18.3; Cigarette Smoker YES; Donated Egg NOT GIVEN; Donor Egg Age NOT GIVEN; Estriol, Free 1.53 ng/mL; Inhibin A, Dimeric 304 pg/mL; Maternal Weight 214 lbs; Number of Fetuses NOT GIVEN; Previous Pregnancy Down Syndro NOT GIVEN; hCG, MoM 1.05; hCG, Serum 19.9 IU/mL
== END ==
PROVIDERS: PCP Family Medicine; Visit Provider Family Medicine
DX: Z34.82 Encounter for supervision of other normal pregnancy, second trimester (principal); Z3A.17 17 weeks gestation of pregnancy
CPT/HCPCS: 36415; 80055; 81003; 82105; 82677; 84702; 86336; 86787; 86803; 86850; 86900; 86901; 87086; 87389

== ENCOUNTER → 2019-11-16 11:07 | Outpatient (CLI) | payer OTHER, MEDICAID, SELFPAY | PROVIDERS: PCP Family Medicine; Visit Provider Physician Assistant | DX: J02.9 Acute pharyngitis, unspecified (principal) | CPT/HCPCS: 87070 ==

== ENCOUNTER 2019-11-16 17:39 | Outpatient (CLI) | payer OTHER, MEDICAID, SELFPAY | END 2019-11-16 19:25 | disposition home or self-care (01) | LOC: OB 11-20 12:45 | PROVIDERS: PCP Family Medicine; Visit Provider Family Medicine | DX: O09.522 Supervision of elderly multigravida, second trimester (principal); V49.9XXA Car occupant (driver) (passenger) injured in unspecified traffic accident, initial encounter; Z3A.25 25 weeks gestation of pregnancy | CPT/HCPCS: 59025; G0378; G0379 ==

== ENCOUNTER 2019-11-23 16:33 | Emergency (ER) | payer OTHER, MEDICAID, SELFPAY ==
[2019-11-23 16:35] VITALS: BP 120/75; PULSE 87; RESP 20; TEMP 36.4; O2SAT 97
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
[2019-11-23 18:52] VITALS: BP 131/71; PULSE 68
== END 2019-11-23 18:53 | disposition home or self-care (01) ==
PROVIDERS: Emergency Provider Emergency Medicine; PCP Family Medicine
DX: O26.892 Other specified pregnancy related conditions, second trimester (principal); S39.012A Strain of muscle, fascia and tendon of lower back, initial encounter; S93.401A Sprain of unspecified ligament of right ankle, initial encounter; R10.30 Lower abdominal pain, unspecified; V87.7XXA Person injured in collision between other specified motor vehicles (traffic), initial encounter; Z3A.27 27 weeks gestation of pregnancy
CPT/HCPCS: 99281; 99282

== ENCOUNTER 2019-11-23 18:48 | Outpatient (CLI) | payer OTHER, MEDICAID, SELFPAY | END 2019-11-23 20:44 | disposition home or self-care (01) | LOC: OB 11-24 15:20 | PROVIDERS: PCP Family Medicine; Visit Provider Family Medicine | DX: O09.522 Supervision of elderly multigravida, second trimester (principal); R03.0 Elevated blood-pressure reading, without diagnosis of hypertension; Z3A.26 26 weeks gestation of pregnancy | CPT/HCPCS: 59050; G0378; G0379 ==

== ENCOUNTER 2019-11-26 19:05 | Outpatient (CLI) | payer OTHER, MEDICAID, SELFPAY ==
[2019-11-26 20:01] LABS: Bacteria Urine None Seen; RBC Urine None Seen (0-5/HPF); WBC Urine None Seen (0-5/HPF)
[2019-11-26 20:04] LABS: Appearance Urine UA CLEAR; Bilirubin Urine UA NEGATIVE (NEGATIVE); Color Urine UA YELLOW; Glucose Urine UA 1+ g/dL (Negative); Ketones Urine UA TRACE (NEGATIVE); Leukocyte Esterase Urine UA NEGATIVE (NEGATIVE); Nitrite Urine UA NEGATIVE (Negative); Occult Blood Urine UA NEGATIVE (Negative); Protein Urine UA NEGATIVE (Negative); Specific Gravity Urine UA >=1.030 (1.000-1.035); Urobilinogen Urine UA 0.2 E.U./dL (0.2)
[2019-11-26 20:07] LABS: pH Urine UA 5.5 (4.5-8.0)
[2019-11-26 20:09] LABS: Culture Indicated Urine Cult Not Indicated; Squamous Epithelial Cell Urine 5-10 /HPF (0-5/HPF)
--- NOTE | 2019-11-26 20:19 | P.TNLD_ITS ---
Visit Information Visit Information Date of evaluation: 11/26/19 Primary OB Provider: Jonas De Luna On-call OB Provider: Aditi Garland Reason for Evaluation: Yes other Comments/Additional reasons for admission: Patient had two episodes today of elevated blood pressures when she checked at a pharmacy. Denied RICHARDSON, vision changes, abdominal pain or edema. Was checking because of a h/o pre-eclampsia in past pregnancies. She is currently taking Augmentin for a sinus infection. Vital Signs Vital Signs: T 36.4 BP 138/79 HR 93 PFSH Social History marital status: Smoking Status: Former smoker alcohol intake: current (ON OCCASION ) substance use type: does not use Objective Labs Labs: Laboratory Results - last 24 hr 11/26/19 19:50 Urine Color Yellow Urine Appearance Clear Urine pH 5.5 Ur Specific [place] >=1.030 H Urine Protein Negative Urine Glucose (UA) 1+ H Urine Ketones Trace H Urine Occult Blood Negative Urine Nitrate Negative Urine Bilirubin Negative Urine Urobilinogen 0.2 Ur Leukocyte Esterase Negative Urine RBC None seen Urine WBC None seen Ur Squamous Epith Cells 5-10 /hpf H Urine Bacteria None seen Ur Culture Indicated? Cult not indicated Evaluation Evaluation Baseline heart rate: 150 Variability: Moderate (11-25) monitor accelerations: Present monitor decelerations: Absent Laboratory results: Laboratory Tests 11/26/19 19:50 Urine Color Yellow Urine Appearance Clear Urine pH 5.5 Ur Specific [place] >=1.030 H Urine Protein Negative Urine Glucose (UA) 1+ H Urine Ketones Trace H Urine Occult Blood Negative Urine Nitrate Negative Urine Bilirubin Negative Urine Urobilinogen 0.2 Ur Leukocyte Esterase Negative Urine RBC None seen Urine WBC None seen Ur Squamous Epith Cells 5-10 /hpf H Urine Bacteria None seen Ur Culture Indicated? Cult not indicated Diagnosis, Plan/Disposition Final Diagnosis (1) 26 weeks gestation of : Current Visit: Yes Status: Acute Plan/Disposition Plan: 34 year old at 24 weeks gestation. Patient was concerned about sharmaine vated blood pressures today when she checked at a pharmacy. Denied RICHARDSON, vision changes, abdominal pain or edema. BP normal in center. Urine negative for protein. NST reactive. She will follow up next week as scheduled with Dr. De Luna. OB Disposition: home
== END 2019-11-26 20:15 | disposition home or self-care (01) ==
LOC: OB 11-27 11:48
PROVIDERS: PCP Family Medicine; Visit Provider Family Medicine
DX: O26.892 Other specified pregnancy related conditions, second trimester (principal); R03.0 Elevated blood-pressure reading, without diagnosis of hypertension; Z3A.26 26 weeks gestation of pregnancy
CPT/HCPCS: 59025; 81001; G0378; G0379

== ENCOUNTER → 2019-12-01 10:20 | Outpatient (CLI) | payer OTHER, MEDICAID, SELFPAY ==
[2019-12-01 12:17] LABS: Hematocrit 37.5 % (36-46); Hemoglobin 12.7 g/dL (12.0-16.0)
[2019-12-01 12:31] LABS: GTT (PREG) 1 Hour PP 50gm Dose 140 mg/dL (76-139)
== END ==
PROVIDERS: PCP Family Medicine; Visit Provider Family Medicine
DX: Z34.82 Encounter for supervision of other normal pregnancy, second trimester (principal); Z3A.26 26 weeks gestation of pregnancy
CPT/HCPCS: 36415; 82950; 85014; 85018

== ENCOUNTER 2019-12-04 10:49 | Emergency (ER) | payer OTHER, MEDICAID, SELFPAY ==
[2019-12-04 11:03] VITALS: BP 123/74; PULSE 96; RESP 19; TEMP 36.9; O2SAT 98; BMI 37.4
--- NOTE | 2019-12-04 11:30 | DI.RAD.S_ITS ---
PROCEDURE: XR FINGER RT MIN 2V INDICATIONS: 2nd digit distal pain and nail injury, fell on ice, TECHNIQUE: AP hand, 2 views of the second finger(s) acquired. COMPARISON: None. FINDINGS: Bones: No fractures or dislocations. No suspicious bony lesions. Soft tissues: No suspicious soft tissue calcifications. IMPRESSION: No acute osseous abnormality. Dictated by: Woody Antunez M.D. on 12/04/2019 at 11:55 Approved by: Woody Antunez M.D. on 12/04/2019 at 11:56
--- NOTE | 2019-12-04 11:30 | DI.RAD.S_ITS ---
PROCEDURE: XR WRIST RT MIN 3V INDICATIONS: fell on ice R ulnar aspect pain, TECHNIQUE: 4 views of the wrist were acquired. COMPARISON: [facility], CR, XR FINGER RT MIN 2V, 12/04/2019, 11:31. FINDINGS: Bones: No fractures or dislocations. No suspicious bony lesions. Scaphoid view: Unremarkable. Soft tissues: No suspicious soft tissue calcifications. IMPRESSION: No acute osseous abnormality. If pain persists consider followup radiographs in 10-14 days Dictated by: Woody Antunez M.D. on 12/04/2019 at 11:53 Approved by: Woody Antunez M.D. on 12/04/2019 at 11:55
[2019-12-04] MEDS: ACETAMINOPHEN 325 MG TABLET 975 MG PO (12:07)
--- NOTE | 2019-12-04 12:35 | ED_ITS ---
HPI - Extremity Injury (Upper) <PATRICIA Ring - Last Filed: 12/04/19 13:10> General Chief Complaint: Extremity Injury, Upper Stated Complaint: slipped on ice injured right arm/ankle Time Seen by Provider: 12/04/19 11:17 Source: patient Mode of arrival: Family Vehicle Limitations: no limitations History of Present Illness HPI narrative: This is a 34-year-old female, nonsmoker, who presents to ED with right ulna aspect wrist pain, right index finger pain and bleeding, right rib pain, right ankle swelling after she fell in a parking lot on a icy surface at work source in [place] prior coming into ED. patient is currently about 26 week EGA and SRI is 03/11/2020. Patient denies losing consciousness, hitting her head, mid cervical tenderness, vaginal bleeding, abdominal pain, or contraction. Patient reports pain increases in right distal index finger and wrist with flexion. Patient reports sensation is intact. Right lateral ankle has mild swelling but reports she was able to bear weight and all walk on it without pain. Patient denies dyspnea, short of breath, increase in pain with inhalation in right ribs. Patient reports pain is about 8/10 at this time. Related Data Previous Rx's Medication Instructions Recorded clonidine HCl 0.2 mg tablet 0.2 mg PO BID #60 tab 07/29/19 risperidone 1 mg tablet 1 mg PO BEDTIME #30 tab 07/29/19 albuterol sulfate 90 mcg/actuation 2 puff INHALATION Q6HP PRN #1 09/01/19 aerosol inhaler inhalation albuterol sulfate 2.5 mg INHALATION Q4-6H PRN #90 ml 09/02/19 cetirizine 10 mg tablet 10 mg PO DAILY #90 tab 10/26/19 prenat.vits,cristopher,api-[id number]-[id number] 1 tab PO DAILY #90 tab 10/27/19 docusate sodium 100 mg capsule 100 mg PO BID PRN #60 cap 11/03/19 omeprazole 20 mg tablet,delayed 20 mg PO DAILY #30 tab 11/30/19 release Allergies Allergy/AdvReac Type Severity Reaction Status Date / Time erythromycin base Allergy Mild HIVES Verified 12/01/19 09:53 [ERYTHROMYCIN BASE] latex [LATEX] Allergy Mild RASH Verified 12/01/19 09:53 Review of Systems <PATRICIA Ring - Last Filed: 12/04/19 13:10> Review of Systems Narrative: General: Denies fever, chills, fatigue, malaise, sweats. HEENT: Denies sinus pain, ear pain, sore throat, difficulty swallowing, dizziness. Respiratory: Denies dyspnea, cough, wheezing, hemoptysis, sputum. Cardiovascular: Denies chest pain, palpitations, orthopnea, edema. Gastrointestinal: Denies nausea, vomiting, abdominal pain, diarrhea, constipation, melena. : Denies dysuria, frequency, incontinence, hematuria, urinary retention. Musculoskeletal: See HPI Skin: Superficial abrasion on right lateral ankle. Denies rash or other. Neurologic: Denies weakness, headache, numbness, change in speech, confusion, seizures, incoordination. Psychiatric: No concerning psychosocial issues. 12-point review of systems is negative except for those stated above. Patient History <PATRICIA Ring - Last Filed: 12/04/19 13:10> Medical History (Updated 12/04/19 @ 12:34 by PATRICIA Ring) ADHD (Acute) Ankle pain (Chronic 2009) Anxiety (Chronic) Asthma (Chronic 2009) Bipolar disorder (Chronic ~2009) Chicken pox (Resolved) Depression (Chronic) Drug abuse in remission (Acute ~2013) Foot pain (Chronic 2011) Generalized headaches (Acute) Gestational diabetes (Resolved 2012) Hayfever (Chronic 1989) Herpes (Chronic 2011) Recovering alcoholic (Acute ~2013) UTI (urinary tract infection) (Acute) Surgical History (Updated 12/01/19 @ 09:14 by Corrine Cobian RN) Status post delivery (Resolved 04/19/12) Status post delivery (Resolved 07/15/13) Status post delivery (Acute ~2016) [place] teeth extracted (Acute ~2011) Family History (Updated 12/01/19 @ 09:12 by Corrine Cobian RN) Brother Age: 37 Asthma Anxiety Father Age: 57 Diabetes mellitus Hypertension High cholesterol Mother Suicide attempt Depression Anxiety Sister Hypertension Anxiety Grandmother Cervical cancer Cancer Stomach cancer Throat cancer Colon cancer Grandfather Cancer Grandmother Diabetes mellitus Social History marital status: number of children: 3 household members: children pets and animals: No education level: master's degree (in Social Work) occupational status: unemployed current occupational exposures/hazards: No special michelle needs: No Smoking Status: Former smoker alcohol intake: current (ON OCCASION ) substance use type: does not use Smoking Status: Former smoker alcohol intake frequency: 0-2 drinks per day Substance Use Type: does not use Exam <Mane NETTA GarsiaP - Last Filed: 12/04/19 13:10> Narrative Exam Narrative: GEN: Alert, oriented x 3, well appearing and nourished, and in no acute distress. Head: Normal cephalic, atraumatic. No scalp or temporal tenderness, step-offs, palpable mass or rash. EYES: Pupils are equal, round, and reactive to light and accommodation. Extraocular muscles are intact bilaterally. There is no subconjunctival hemorrhage, exudate and sclera non-icteric. ENT: Bilateral auditory canals and tympanic membranes clear. Hearing grossly intact. Nose without bleeding, purulent discharge or deviation. Facial sinuses nontender to palpate. Mucous membrane moist, no mucosal lesion. Throat without erythema, tonsillar hypertrophy or exudate. Uvula in midline, airway patent. Neck: Trachea in midline. No JVD, non-tender without lymphadenopathy. No masses or thyroid megaly. Supple, non-tender to palpate, no step-offs and no meningeal signs. CARDIAC: Normal regular rate and rhythm without murmurs, gallops, or rubs. No chest wall tenderness. No peripheral edema, cyanosis or pallor. Capillary refill is less than 2 seconds. RESPIRATORY: Lungs are clear to auscultate bilaterally. No cough, wheezes, rales, or rhonchi. No stridor, respiratory distress, increase work of breathing, or accessary muscle used. ABD: Abdomen soft, nontender and non-distended. No guarding or rebound tenderness to palpate. Bowel sounds are normal in all 4 quadrants. There is no palpable masses or organomegaly. SKIN: Small superficial abrasion on right lateral ankle without bleeding. Warm, dry, normal color for patient. No erythema, lesions or rash over visible areas. BACK: Nontender without deformity or crepitance. No flank tenderness. NEUROLOGICAL: Alert and oriented to place, time and person. Sensation and motor function intact bilaterally. No facial droops, dysphasia. PSYCHIATRIC: Good judgement and reason, without hallucinations, abnormal affect or abnormal behaviors during the examination. Patient is not suicidal. Initial Vital Signs Initial Vital Signs: Vital Signs Temperature 98.5 F 12/04/19 11:03 Pulse Rate 96 H 12/04/19 11:03 Respiratory Rate 19 12/04/19 11:03 Blood Pressure 123/74 12/04/19 11:03 Pulse Oximetry 98 12/04/19 11:03 Extrem Right upper extremity: full ROM, shoulder/upper arm Details: normal to inspection; no tenderness, elbow/forearm Details: normal to inspection; no tenderness, wrist Details: normal to inspection, tenderness (in ulnar aspect in volar and dorsal aspect with movement, worse with flexion) and radial pulse present; no swelling and hand (index distal finger pain with palpation and flexion. mid nail injury) Details: neuromotor exam normal, neurosensory exam normal, tendon exam normal, vascular exam Details: radial pulse present and normal ROM of fingers; no edema Right lower extremity: ankle Details: swelling (Mild swelling to lateral malleolar), normal ROM and abrasion (Small superficial abrasion on lateral malleoli); no unusual warmth and foot Details: toes with normal ROM, vascular exam Details: dorsalis pedis pulse present and motor-sensory exam Details: light-touch normal; no tenderness <Hailey Rolle DO - Last Filed: 12/05/19 07:04> Initial Vital Signs Initial Vital Signs: Vital Signs Temperature 98.5 F 12/04/19 11:03 Pulse Rate 96 H 12/04/19 11:03 Respiratory Rate 19 12/04/19 11:03 Blood Pressure 123/74 12/04/19 11:03 Pulse Oximetry 98 12/04/19 11:03 Procedures <PATRICIA Ring - Last Filed: 12/04/19 13:10> Orthopedic Splinting/Casting Injury #1: Side: right Upper Extremity Injury Location: wrist Upper Extremity Immobilizer: wrist splint (prefabricated) Post splinting neuro exam: intact Post splinting vascular exam: intact Placed by: Nursing Scores <PATRICIA Ring - Last Filed: 12/04/19 13:10> GCS Lonnie coma scale eye opening: Spontaneous [place] coma scale verbal response: Orientated [place] coma scale motor response: Obey commands [place] coma scale total score: 15 Course <PATRICIA Ring - Last Filed: 12/04/19 13:10> Orders Ordered: Discontinued Medications Acetaminophen (Tylenol) 975 mg PO NOW ONE Stop: 12/04/19 11:31 Last Admin: 12/04/19 12:07 Dose: 975 mg Documented by: TITI Bacitracin (Bacitracin) 1 applic TOP NOW ONE Stop: 12/04/19 12:24 Last Admin: 12/04/19 13:03 Dose: 1 applic Documented by: TITI Vital Signs Vital signs: Vital Signs - 8 hr 12/04/19 11:03 Temperature 98.5 F Pulse Rate 96 H Respiratory Rate 19 Blood Pressure 123/74 Pulse Oximetry 98 <Hailey Rolle DO - Last Filed: 12/05/19 07:04> Orders Ordered: Discontinued Medications Acetaminophen (Tylenol) 975 mg PO NOW ONE Stop: 12/04/19 11:31 Last Admin: 12/04/19 12:07 Dose: 975 mg Documented by: TITI Bacitracin (Bacitracin) 1 applic TOP NOW ONE Stop: 12/04/19 12:24 Last Admin: 12/04/19 13:03 Dose: 1 applic Documented by: TITI Vital Signs Vital signs: Vital Signs - 8 hr 12/04/19 11:03 Temperature 98.5 F Pulse Rate 96 H Respiratory Rate 19 Blood Pressure 123/74 Pulse Oximetry 98 MDM - Extremity Injury (Upper) <PATRICIA Ring - Last Filed: 12/04/19 13:10> Differential Diagnosis Differential diagnosis: Likely sprain and strain of wrist, fracture of wrist, finger sprain and other (Ankle sprain, rib contusion, finger fracture) Medical Records Attestation: I reviewed the patient's medical records. Imaging Data XR-Wrist RT: Radiologist's Impression: Sophie Carter 34 F [address] [address] XRay Report Signed Patient: Sophie Carter [facility]#: [id number] : 1985Acct:[id number] Age/Sex: 34 / FDate of Service: 12/04/19 Loc: ED Accession Number: [id number] Procedure: XR wrist RT min 3V Ordering Provider: Mane Garsia PROCEDURE: XR WRIST RT MIN 3V INDICATIONS: fell on ice R ulnar aspect pain, TECHNIQUE: 4 views of the wrist were acquired. COMPARISON: [facility], , XR FINGER RT MIN 2V, 12/04/2019, 11:31. FINDINGS: Bones: No fractures or dislocations. No suspicious bony lesions. Scaphoid view: Unremarkable. Soft tissues: No suspicious soft tissue calcifications. IMPRESSION: No acute osseous abnormality. If pain persists consider followup radiographs in 10-14 days Dictated by: Woody Antunez M.D. on 12/04/2019 at 11:53 Approved by: Woody Antunez M.D. on 12/04/2019 at 11:55 XR-Finger RT: Radiologist's Impression: [address] [address] XRay Report Signed Patient: Sophie Carter [facility]#: [id number] : 1985Acct:[id number] Age/Sex: 34 / FDate of Service: 12/04/19 Loc: ED Accession Number: [id number] Procedure: XR finger RT min 2V Ordering Provider: Mane GarsiaP PROCEDURE: XR FINGER RT MIN 2V INDICATIONS: 2nd digit distal pain and nail injury, fell on ice, TECHNIQUE: AP hand, 2 views of the second finger(s) acquired. COMPARISON: None. FINDINGS: Bones: No fractures or dislocations. No suspicious bony lesions. Soft tissues: No suspicious soft tissue calcifications. IMPRESSION: No acute osseous abnormality. Dictated by: Woody Antunez M.D. on 12/04/2019 at 11:55 Approved by: Woody Antunez M.D. on 12/04/2019 at 11:56 MDM Narrative Medical decision making narrative: This is a 34-year-old female who's currently with SRI on March 11, 2020 will who presents to ED after she fell at the parking lot after fell on icy ground and landed on R side of body. Patient denies vaginal bleeding, abdominal pain, contraction. Patient reported pain in right lateral wrist, index finger, right ribs, small swelling to right lateral ankle. Right wrist and finger x-ray was done without acute findings such as dislocation or fracture. Right wrist has been placed on prefabricated wrist splint. Right index finger wound care was done after she soaked in Hibiclens water and antibiotic medication ointment. heart turn today was 151. Patient was medicated with Tylenol which helped with discomfort. Patient advised to use ice pack for next 48 hours for pain and inflammation. Return precautions were discussed with the patient and advised to follow-up with PCP. Patient verbalized understanding and agrees with the treatment plan. Discharge Plan Departure Patient Disposition: Home Clinical Impression: Right wrist sprain Qualifiers: Encounter type: initial encounter Qualified Code(s): S63.501A - Unspecified sprain of right wrist, initial encounter Contusion of finger, right Qualifiers: Encounter type: initial encounter Finger: index finger Damage to nail status: with damage Qualified Code(s): S60.121A - Contusion of right index finger with damage to nail, initial encounter Right ankle sprain Qualifiers: Encounter type: initial encounter Involved ligament of ankle: unspecified ligament Qualified Code(s): S93.401A - Sprain of unspecified ligament of right ankle, initial encounter Discharge Date/Time: 12/04/19 13:19 Instructions: DI for Wrist Sprain, DI for Ankle Sprain, DI for Finger Sprain Activity Restrictions/Additional Instructions: You have been diagnosed with [fall and sprain/contusion on right ulna aspect of wrist, index finger, right lateral ankle. Today's x-ray on right finger and wri st does not show fractures or dislocation. We deferred x-rays on right ribs and ankle due to pain is not severe and you are able to bear weight. Your heart rate was within normal limit without abdominal pain, vaginal bleeding at this time.]. What to do: *Take your medications as directed. Please take Tylenol up to 4000 mg in 24 hour period. You may have worse pain tomorrow from contusion and sprains. Please use ice pack on affected painful site intermittently for next couple of days to decrease inflammation. If pain in her wrist is not improving next a couple of weeks, please follow-up with your PCP and repeat imaging test. *Follow up with your primary care provider in 2-3 days, call for an appointment. Let them know you were seen in the ED and that we asked you to be seen in follow up. *Return to ED if you have any new, worsening, or concerning symptoms, such as [vaginal bleeding, abdominal pain, contraction, tingling/numbness cut/weakness to her extremities, signs of infection such as increasing redness/warmth/pain/swelling/fever or any other acute concerns]. Prescriptions: No Action clonidine HCl 0.2 mg tablet 0.2 mg PO BID Qty: 60 RF: 3 risperidone 1 mg tablet 1 mg PO BEDTIME Qty: 30 RF: 3 albuterol sulfate 2.5 mg /3 mL (0.083 %) solution for nebulization 2.5 mg INHALATION Q4-6H PRN (Reason: bronchospasm) Qty: 90 RF: 0 cetirizine 10 mg tablet 10 mg PO DAILY Qty: 90 RF: 3 albuterol sulfate [Proventil HFA] 90 mcg/actuation HFA aerosol inhaler 2 puff inhalation Q6HP PRN (Reason: shortness of breath or wheezing) Qty: 1 RF: 11 prenat.vits,cristopher,sym-[id number]-[id number] Tablet 1 tab PO DAILY Qty: 90 RF: 3 docusate sodium [Colace] 100 mg capsule 100 mg PO BID PRN (Reason: constipation) Qty: 60 RF: 2 omeprazole 20 mg tablet,delayed release (DR/EC) 20 mg PO DAILY Qty: 30 RF: 3 Referrals: Jonas De Luna MD [Primary Care Provider] -
[2019-12-04] MEDS: BACITRACIN OINT 0.9 GM PCKT 1 APPLIC TOP (13:03)
[2019-12-04 13:16] VITALS: PULSE 98; RESP 18; O2SAT 100
== END 2019-12-04 13:19 | disposition home or self-care (01) ==
PROVIDERS: Emergency Provider Nurse Practitioner Family; PCP Family Medicine
DX: S63.501A Unspecified sprain of right wrist, initial encounter (principal); S60.121A Contusion of right index finger with damage to nail, initial encounter; S93.401A Sprain of unspecified ligament of right ankle, initial encounter; W00.0XXA Fall on same level due to ice and snow, initial encounter
CPT/HCPCS: 73110; 73140; 99283; 99284

== ENCOUNTER → 2019-12-09 06:47 | Outpatient (CLI) | payer OTHER, MEDICAID, SELFPAY ==
[2019-12-09 09:04] LABS: Glucose Fasting Gestational 85 mg/dL (76-95)
[2019-12-09 09:13] LABS: Glucose 1 Hour Gest 170 mg/dL (76-180)
[2019-12-09 10:09] LABS: Glucose 2 Hour Gest 165 mg/dL (76-155)
[2019-12-09 10:19] LABS: Glucose Tol Interp,Gestational INTERPRETATION
[2019-12-09 10:58] LABS: Glucose 3 Hour Gest 85 mg/dL (76-140)
== END ==
PROVIDERS: PCP Family Medicine; Visit Provider Family Medicine
DX: Z34.90 Encounter for supervision of normal pregnancy, unspecified, unspecified trimester (principal); R73.09 Other abnormal glucose
CPT/HCPCS: 82951; 82952

== ENCOUNTER 2019-12-10 08:55 | Outpatient (CLI) | payer OTHER, MEDICAID, SELFPAY | END 2019-12-10 10:45 | disposition home or self-care (01) | LOC: LABOR 10:49 → OB 12-11 09:19 | PROVIDERS: PCP Family Medicine; Visit Provider Family Medicine | DX: O26.893 Other specified pregnancy related conditions, third trimester (principal); R10.9 Unspecified abdominal pain; R19.7 Diarrhea, unspecified; Z3A.28 28 weeks gestation of pregnancy | CPT/HCPCS: 59025; 59050; G0378; G0379 ==

== ENCOUNTER → 2019-12-16 08:41 | Outpatient (CLI) | payer OTHER, MEDICAID, SELFPAY ==
--- NOTE | 2019-12-16 09:53 | DIET.PN ---
INITIAL GESTATIONAL DIABETES ASSESSMENT ASSESS:? Ms. Carter is G4, P3. She reports history of pre-eclampsia with 1st and 3rd and 2nd with GDM. Does not have a glucometer. Took metformin with 2nd . Reports she usually eats like she?s 11 including chips, crackers, sweets. Since recent DX of GDM she has started eating more balanced meals including protein, fruits, veggies, and grains. 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 She reports staying fairly active with her kids. ? SRI: March 11, 2020 ? WKS GESTATION:?? 28 wks ?LABS: FB, 1 hr: 170, 2 hr: 165, 3 hr: 85 ? MEDS: none at this time ? DIET:? B: eggs, WIC cereal L: Soup, sandwich w/ fruit, veg D: Pro, starch, vegetables Sn: pb w/ crackers, cheese, yogurt ? HT:? 65? PRE-PREG WT:? 185 lb ? PRE-PREG BMI:??? 30.8 ? CURRENT WT : 224 lb ? TOTAL WT GAIN:? 39 lb EXERCISE: Stays busy with other 3 kids NUTRITION DX 1. Altered nutrition related lab values r/t gestational diabetes as evidenced by recent labs (OGGT). INTERVENTION 1. Discussed pathophysiology of gestational diabetes and impact of hormone and nutrition/diet on blood sugar control.? Discussed fed versus non-fed state.? 2. Recommended checking fasting, premeal and 1hr post prandial (3x/day).? Discussed goals for glycemic control (<95 FBG, <140 1-hr PP).? Called PCP for prescription for glucometer and test trips to monitor BID. 3. Discussed the effect of carbohydrates/protein/fat on blood sugar control.? Stressed importance of consistent carbohydrate intake at each meal and provided instructions for recommended servings/portions of carbohydrates/protein per meal.? Provided pt with educational material. 4. Introduced carbohydrate counting and measuring carbohydrate content via servings sizes and reading nutrition labels.? Provided handouts.? Pt will need further review 5. Discussed importance of meal timing and not going >3 hours between meals.? Provided sample meal schedule for pt.? Pt agreeable.?? 6. Discussed importance a pre-david vitamin and including food sources of calcium, vitamin D, iron and folic acid for baby and mother?s nutrition support. 7. Discussed caffeine intake. Recommend no more than 200 mg/day (1 cup coffee). 8. Discussed rule of 15 for hypoglycemia. 9. Recommend patient purchase Urine Ketone strips and instructed on use and when to contact provider. 10. Recommended patient continue exercise as appropriate per PCP approval. 11. Patient may need medication management, will follow-up with plan of care at next visit after reviewing glucose results.? MONITOR/EVAL: Follow up scheduled X 1 week. Good compliance expected. Review: carb sources, carb counting, portion size, meal timing, BG log, weight.
== END ==
PROVIDERS: PCP Family Medicine; Visit Provider Family Medicine
DX: O24.410 Gestational diabetes mellitus in pregnancy, diet controlled (principal); Z3A.28 28 weeks gestation of pregnancy
CPT/HCPCS: G0108

== ENCOUNTER → 2019-12-24 09:53 | Outpatient (CLI) | payer OTHER, MEDICAID, SELFPAY ==
--- NOTE | 2019-12-24 10:20 | DIET.PN ---
Gestational Diabetes Follow Up ? ASSESS:? Met for pts first GDM f/u. Started on Metformin 500 mg BID last night. No GI issues to report. Purchasing more vegetables and is trying to fill half her plate with greens. Snacking more often. Monitoring 4 x/day. FBG has been high >20% of the time. Snacking on apples and PB, celery and cream cheese. ? LABS: FB-110 1 hr PP:? 91-140 (>140 x 3)? Weight: 226 (up 2#) ? NUTRITION Dx? 1. Altered nutrition related labs r/t gestational diabetes aeb recent labs (OGGT). ? INTERVENTION? 1. Reviewed blood sugar log and implications/reasons for elevated/decreased blood sugar.? Pt with good understanding.? 2. Reviewed carbohydrate counting and importance of consistent carbohydrate intake.? 3. Reviewed meal intake and importance of balanced meals. 4. Discussed evening snacks ideas. Recommended avoiding milk and fruit after dinner. ? MONITOR/EVALUATE: Pt receptive to information provided.? Will schedule follow up in 4 weeks. Patient will call sooner if blood glucose is not in range.
== END ==
PROVIDERS: PCP Family Medicine; Referring Provider Family Medicine; Visit Provider Family Medicine
DX: E11.9 Type 2 diabetes mellitus without complications (principal); Z79.84 Long term (current) use of oral hypoglycemic drugs; Z71.3 Dietary counseling and surveillance
CPT/HCPCS: G0108

== ENCOUNTER 2020-01-03 19:23 | Emergency (ER) | payer OTHER, MEDICAID, SELFPAY ==
[2020-01-03 19:39] VITALS: BP 134/76; PULSE 96; RESP 22; TEMP 36.7; O2SAT 98; BMI 37.8
--- NOTE | 2020-01-03 21:18 | ED_ITS ---
HPI - Back Pain/Injury General Chief Complaint: Back Pain/Injury Stated Complaint: States lung pain Time Seen by Provider: 01/03/20 20:57 Source: patient Mode of arrival: Ambulatory Limitations: no limitations History of Present Illness HPI Narrative: 34-year-old female nonsmoker as at about 20 weeks and presents with a chief complaint of runny nose, nasal congestion, the occasional sore throat and dry cough for the past week or so. She states now she has some pain and her right upper back that is worse with a cough and with motion of her right upper extremity. She denies any injury or overuse. She denies any abdominal pain, nausea or vomiting. She denies any chest pain or significant shortness of breath. MD Complaint: back pain Onset (ago): day(s) Duration: intermittent Location: right upper back Severity: mild Quality: sharp Radiation: none Exacerbating factors: movement, deep breaths and coughing/sneezing Associated symptoms: other Related Data Previous Rx's Medication Instructions Recorded clonidine HCl 0.2 mg tablet 0.2 mg PO BID #60 tab 07/29/19 risperidone 1 mg tablet 1 mg PO BEDTIME #30 tab 07/29/19 albuterol sulfate 90 mcg/actuation 2 puff INHALATION Q6HP PRN #1 09/01/19 aerosol inhaler inhalation albuterol sulfate 2.5 mg INHALATION Q4-6H PRN #90 ml 09/02/19 cetirizine 10 mg tablet 10 mg PO DAILY #90 tab 10/26/19 prenat.vits,cristopher,wie-yszs-dozsw 1 tab PO DAILY #90 tab 10/27/19 docusate sodium 100 mg capsule 100 mg PO BID PRN #60 cap 11/03/19 omeprazole 20 mg tablet,delayed 20 mg PO DAILY #30 tab 11/30/19 release blood sugar diagnostic #100 each 12/16/19 blood-glucose meter #1 each 12/16/19 lancets #100 each 12/16/19 metformin 500 mg tablet 500 mg PO BID #60 tab 12/22/19 lidocaine [Lidoderm] 1 patch TOP DAILY #15 each 01/03/20 Allergies Allergy/AdvReac Type Severity Reaction Status Date / Time erythromycin base Allergy Mild HIVES Verified 12/22/19 14:59 [ERYTHROMYCIN BASE] latex [LATEX] Allergy Mild RASH Verified 02/04/20 14:59 Review of Systems Constitutional Constitutional: Denies chills, Denies fatigue, Denies fever(s), Denies frequent falls, Denies lethargy and Denies weakness Eyes Eyes: Denies change in vision, Denies eye discharge, Denies irritation and Denies loss of vision ENT Ears, Nose, Mouth, and Throat: Denies change in voice, Denies dizziness, Denies neck pain, Denies sore throat and Denies throat swelling Cardiovascular Cardiovascular: Denies chest pain, Denies irregular heart rhythm, Denies lightheadedness, Denies palpitations, Denies dyspnea, Denies dyspnea on exertion and Denies orthopnea Respiratory Respiratory: Reports cough, Denies dyspnea, Denies dyspnea on exertion and Denies wheezing Gastrointestinal Gastrointestinal: Denies abdominal pain, Denies change in bowel habits, Denies diarrhea, Denies nausea and Denies vomiting Genitourinary Genitourinary: Denies hematuria, Denies flank pain, Denies urinary incontinence and Denies urinary urgency Musculoskeletal Musculoskeletal: Reports back pain, Denies muscle weakness, Denies neck pain, Denies numbness and Denies tingling Integumentary/Breasts Skin/Breast: Denies pruritus, Denies erythema, Denies rash and Denies wounds Neurologic Neurologic: Denies behavioral changes, Denies confusion, Denies dizziness, Denies frequent falls, Denies loss of vision, Denies numbness, Denies tingling and Denies weakness Psychiatric Psychiatric: Denies anxiety, Denies behavioral changes, Denies confusion, Denies depression, Denies homicidal ideation and Denies suicidal ideation Endocrine Endocrine: Denies fatigue, Denies flushing and Denies palpitations Hematologic/Lymphatic Hematologic/Lymphatic: Denies easy bruising Allergic/Immunologic Allergic/Immunologic: Denies urticaria, Denies throat swelling and Denies wheezing Patient History Medical History ADHD (Acute) Ankle pain (Chronic 2009) Anxiety (Chronic) Asthma (Chronic 2009) Bipolar disorder (Chronic ~2009) Chicken pox (Resolved) Depression (Chronic) Drug abuse in remission (Acute ~2013) Foot pain (Chronic 2011) Generalized headaches (Acute) Gestational diabetes (Resolved 2012) Hayfever (Chronic 1989) Herpes (Chronic 2011) Recovering alcoholic (Acute ~2013) UTI (urinary tract infection) (Acute) Surgical History Status post delivery (Resolved 04/19/12) Status post delivery (Resolved 07/15/13) Status post delivery (Acute ~2016) [place] teeth extracted (Acute ~2011) Family History Brother Age: 37 Asthma Anxiety Father Age: 57 Diabetes mellitus Hypertension High cholesterol Mother Suicide attempt Depression Anxiety Sister Hypertension Anxiety Grandmother Cervical cancer Cancer Stomach cancer Throat cancer Colon cancer Grandfather Cancer Grandmother Diabetes mellitus Social History marital status: number of children: 3 household members: children pets and animals: No education level: master's degree (in Social Work) occupational status: unemployed current occupational exposures/hazards: No special michelle needs: No Smoking Status: Former smoker alcohol intake: current (ON OCCASION ) substance use type: does not use Smoking Status: Former smoker alcohol intake frequency: 0-2 drinks per day Substance Use Type: does not use Exam Narrative Exam Narrative: GENERAL: [34] year old patient appears stated age. Well- nourished, well-developed patient, in mild distress. HEAD: Atraumatic. Normocephalic. EYES: Pupils equal round and reactive. Extraocular motions intact. No scleral icterus. No injection or drainage. ENT: Runny nose with nasal congestion. Throat without erythema, tonsillar hypertrophy or exudate, though there is postnasal drip. Airway patent. NECK: Trachea midline. Non tender CARDIOVASCULAR: Regular rate and rhythm without murmurs, gallops, or rubs. RESPIRATORY: Clear to auscultation. Breath sounds equal bilaterally. No wheezes, rales, or rhonchi. GASTROINTESTINAL: Abdomen soft, non-tender, nondistended. EXTREMITIES: No edema or joint tenderness. BACK: Right-sided thoracic paraspinal musculature is tender to palpation NEURO: AOx3. SKIN: No rash or erythema of visible areas Initial Vital Signs Initial Vital Signs: Vital Signs Temperature 98.1 F 01/03/20 19:39 Pulse Rate 96 H 01/03/20 19:39 Respiratory Rate 22 01/03/20 19:39 Blood Pressure 134/76 01/03/20 19:39 Pulse Oximetry 98 01/03/20 19:39 Course Orders Ordered: ED Orders 01/03/20 22:37 Influenza A & B (PCR) Stat Discontinued Medications Lidocaine (Lidoderm) 1 each TOP NOW ONE Stop: 01/03/20 21:26 Last Admin: 01/03/20 21:41 Dose: 1 each Documented by: ILDEFONSO Vital Signs Vital signs: Vital Signs - 8 hr 01/03/20 23:35 Pulse Rate 99 H Respiratory Rate 16 Blood Pressure [Left Arm] 125/73 Pulse Oximetry 98 MDM - Back Pain/Injury Lab Data Labs: Lab Results 01/03/20 Range/Units 22:37 Influenza A (RT-PCR) Flu a negative (NEGATIVE) Influenza B (RT-PCR) Flu b negative (NEGATIVE) MDM Narrative Medical decision making narrative: Patient presents with upper respiratory complaints including runny nose, nasal congestion and dry cough. Pain is worse with cough and movement. Cough is not productive patient is not short of breath and denies chest pain. Most likely cause of her symptoms is muscle spasm or inflammation as a consequence of frequent coughing. Fluids considered but thought less likely given negative swab. Pneumonia considered but thought less likely given lack of fever, productive cough or classic findings on exam. Pancreatitis and biliary disease considered as a potential source of referred pain however she has no nausea, vomiting or epigastric pain. Pulmonary embolism considered to be a source of pain however patient has no chest pain, shortness of breath, has normal vital signs and completely reproducible pain to palpation. Patient given return precautions and has had her questions answered to her apparent satisfaction Discharge Plan Departure Patient Disposition: Home Clinical Impression: Thoracic back pain Qualifiers: Chronicity: acute Back pain laterality: right Qualified Code(s): M54.6 - Pain in thoracic spine Discharge Date/Time: 01/03/20 23:42 Instructions: DI for Back Spasm Activity Restrictions/Additional Instructions: *You have been diagnosed with [muscle spasm associated with frequent cough] *What to do: *Take medications as directed *Follow up with your primary care provider in 2-3 days, call for an appointment. Let them know you were seen in the Emergency Department and that we ask that you be seen in follow up *Return to ER if you should have any new, worsening or concerning symptoms Prescriptions: New lidocaine [Lidoderm] 5 % adhesive patch,medicated 1 patch TOP DAILY Qty: 15 RF: 0 No Action clonidine HCl 0.2 mg tablet 0.2 mg PO BID Qty: 60 RF: 3 risperidone 1 mg tablet 1 mg PO BEDTIME Qty: 30 RF: 3 albuterol sulfate 2.5 mg /3 mL (0.083 %) solution for nebulization 2.5 mg INHALATION Q4-6H PRN (Reason: bronchospasm) Qty: 90 RF: 0 cetirizine 10 mg tablet 10 mg PO DAILY Qty: 90 RF: 3 metformin 500 mg tablet 500 mg PO BID Qty: 60 RF: 3 albuterol sulfate [Proventil HFA] 90 mcg/actuation HFA aerosol inhaler 2 puff inhalation Q6HP PRN (Reason: shortness of breath or wheezing) Qty: 1 RF: 11 prenat.vits,cristopher,yrz-rdbx-sjein Tablet 1 tab PO DAILY Qty: 90 RF: 3 docusate sodium [Colace] 100 mg capsule 100 mg PO BID PRN (Reason: constipation) Qty: 60 RF: 2 omeprazole 20 mg tablet,delayed release (DR/EC) 20 mg PO DAILY Qty: 30 RF: 3 (DME) blood-glucose meter Kit See Rx Instructions .ROUTE .MEDSUPPLY Qty: 1 RF: 0 (DME) Blood Glucose Test Strip See Rx Instructions .ROUTE .MEDSUPPLY Qty: 100 RF: 3 (DME) lancets Misc See Rx Instructions .ROUTE .MEDSUPPLY Qty: 100 RF: 3 Referrals: Jonas De Luna MD [Primary Care Provider] -
[2020-01-03] MEDS: LIDOCAINE PATCH 1 EACH ADH..PATCH TOP (21:41)
[2020-01-03 22:08] VITALS: BP 117/76; PULSE 106; RESP 16; O2SAT 98
[2020-01-03 23:15] LABS: Influenza A - CEPHEID Flu A NEGATIVE (NEGATIVE); Influenza B - CEPHEID Flu B NEGATIVE (NEGATIVE)
[2020-01-03 23:35] VITALS: BP 125/73; PULSE 99; RESP 16; O2SAT 98
== END 2020-01-03 23:42 | disposition home or self-care (01) ==
PROVIDERS: Emergency Provider Emergency Medicine; PCP Family Medicine
DX: M54.6 Pain in thoracic spine (principal); R05 Cough
CPT/HCPCS: 87502; 99282

== ENCOUNTER → 2020-01-20 09:52 | Outpatient (CLI) | payer OTHER, MEDICAID, SELFPAY ==
--- NOTE | 2020-01-20 12:41 | DIET.PN ---
Gestational Diabetes Follow Up ? ASSESS:? Ms. Carter is a 34 yof seen for GDM f/u. She continues to have elevated fasting blood glucose. Her metformin was increased to 1000 mg BID x2 weeks ago. No GI issue to report. She has cut out most sugary treats and has discontinued snacking in the evening. Admits to eating cereal and top ramen regularly because they are quick meals. She continues to eat protein and vegetables with each meal as previously discussed. Discussed sleep habit, pain management, and hydration. No issues to report. ? LABS: FB-116 (>80% over 95) 1 hr PP:??80-170 (>20% over 140) ? NUTRITION Dx? 1. Altered nutrition related labs r/t gestational diabetes aeb recent labs (OGGT). ? INTERVENTION? 1. Reviewed blood sugar log and implications/reasons for elevated/decreased blood sugar.? Pt with good understanding.? 2. Reviewed carbohydrate counting and importance of consistent carbohydrate intake.? 3. Reviewed meal intake and importance of balanced meals. Discussed avoiding pasta and cereals as main dish and focusing on protein and vegetable dense plates. 4. Discussed evening snacks ideas. Recommended avoiding milk and fruit after dinner to help with elevated FBG. 5. Recommended pt avoid processed foods as much as possible and aim to get most nutrients from refrigerated options. Suggested cutting up vegetables and making protein rich salads (chicken/egg salad) ahead of time for quick snacks. 6. Discussed possible need for increased medication management if >20% of fasting and post-prandial readings are not within recommended values (FBG<95, 1 hr PP <140). Pt agreeable. ? MONITOR/EVALUATE: Pt receptive to information provided.? Will schedule follow up in 4 weeks. Patient will call sooner if blood glucose is not in range. Note: Discussed possible need for basal insulin. Pt understands, but agrees to follow strict dietary recommendations for the remainder of her .
== END ==
PROVIDERS: PCP Family Medicine; Referring Provider Family Medicine; Visit Provider Family Medicine
DX: E11.65 Type 2 diabetes mellitus with hyperglycemia (principal); Z79.84 Long term (current) use of oral hypoglycemic drugs; Z71.3 Dietary counseling and surveillance
CPT/HCPCS: G0108

== ENCOUNTER 2020-02-05 21:11 | Outpatient (CLI) | payer OTHER, MEDICAID, SELFPAY ==
--- NOTE | 2020-02-05 21:40 | P.TNLD_ITS ---
Visit Information Visit Information Date of evaluation: 02/05/20 Primary OB Provider: Jonas De Luna On-call OB Provider: Lilliam Villagran Reason for Evaluation: Yes other Comments/Additional reasons for admission: 34-year-old P 3 female with a history of preeclampsia with her 1st and 3rd BBs called with an elevated home blood pressure 143/102 and was brought in for evaluation. In the office this week she had an elevated BP 140/83. She by a home blood pressure cuff to monitor her BP. On review, she was lying on her side, leaning on the blood pressure cuff when she took her blood pressure. She denies headache, nausea, abdominal pain, or scotomata. Feeling good movement Vital Signs Vital Signs: BP 143/80. repeat 135/73 [facility] Medical History (Updated 02/05/20 @ 21:59 by Lilliam Villagran MD) ADHD (Acute) Ankle pain (Chronic 2009) Anxiety (Chronic) Asthma (Chronic 2009) Bipolar disorder (Chronic ~2009) Chicken pox (Resolved) Depression (Chronic) Drug abuse in remission (Acute ~2013) Foot pain (Chronic 2011) Generalized headaches (Acute) Gestational diabetes (Resolved 2012) Gestational hypertension (Acute) Hayfever (Chronic 1989) Herpes (Chronic 2011) Recovering alcoholic (Acute ~2013) UTI (urinary tract infection) (Acute) Surgical History Status post delivery (Resolved 04/19/12) Status post delivery (Resolved 07/15/13) Status post delivery (Acute ~2016) [place] teeth extracted (Acute ~2011) Social History marital status: number of children: 3 household members: children pets and animals: No education level: master's degree (in Social Work) occupational status: unemployed current occupational exposures/hazards: No special michelle needs: No Smoking Status: Former smoker alcohol intake: current (ON OCCASION ) substance use type: does not use Exam Vital Signs (past 8 hours): General: Well-appearing female Abdomen: Gravid, nontender Extremities: Trace edema EFM: Baseline 140, moderate variability, positive for accelerations, no decelerations, reactive NST Objective Labs Result Diagrams: 02/05/20 21:40 02/05/20 21:40 Diagnosis, Plan/Disposition Final Diagnosis (1) Gestational hypertension: Current Visit: No Status: Acute Plan/Disposition Plan: Labs ordered and were normal Advised to call back if she does get repeat significant elevated blood pressure at home. Counseled on how to take BP at home. Keep her routine scheduled appointment on 02/[address] De Luna. Advised her to take in her BP cuff to the office, so she can see how her home cuff correlates with the office.
[2020-02-05 21:51] LABS: Add Manual Diff / Slide Review NO; Basophils Absolute Auto 0 /uL (0-100); Basophils Percent Auto 0.2 % (0-2); Eosinophils Absolute Auto 200 /uL (0-450); Eosinophils Percent Auto 1.5 % (2-4); Hematocrit 34.7 % (36-46); Hemoglobin 11.7 g/dL (12.0-16.0); Lymphocytes Absolute Auto 2300 /uL (1100-4500); Lymphocytes Percent Auto 20.2 % (25-40); Mean Corpuscular HGB Conc 33.6 % (30-36); Mean Corpuscular Hemoglobin 29.5 PG (26-34); Mean Corpuscular Volume 87.7 fL (80-100); Monocytes Absolute Auto 900 /uL (0-900); Monocytes Percent Auto 8.4 % (3-14); Neutrophils Absolute Auto 7800 /uL (1500-7000); Neutrophils Percent Auto 69.7 % (50-75); Platelet Count 236 X10^3/uL (150-400); Red Blood Cell Count 3.95 X10^6/uL (4.0-5.2); Red Cell Distribution Width 14.1 % (11.6-14.8); White Blood Cell Count 11.2 X10^3/uL (4.5-11.0)
[2020-02-05 21:59] LABS: Alanine Aminotransferase 19 IU/L (<35); Albumin 3.3 g/dL (3.5-5.0); Alkaline Phosphatase 119 U/L (38-126); Aspartate Aminotransferase 23 IU/L (14-36); BUN Creatinine Ratio 17.2 (6-22); Bilirubin Total 0.1 mg/dL (0.2-1.3); Blood Urea Nitrogen 10 mg/dL (7-17); Calcium 9.2 mg/dL (8.4-10.2); Carbon Dioxide 22 mmol/L (22-32); Chloride 106 mmol/L (98-107); Estimated Glomerular Filt Rate > 60.0 mL/min (>60); Globulin 3.3 g/dL (1.7-4.1); Glucose 145 mg/dL (70-100); HEMOLYSIS < 15 (0-50); Sodium 134 mmol/L (137-145); Total Protein 6.6 g/dL (6.3-8.2); Uric Acid 3.6 mg/dL (2.5-6.2)
== END 2020-02-05 22:15 | disposition home or self-care (01) ==
LOC: LABOR 21:15 → OB 02-08 08:03
PROVIDERS: PCP Family Medicine; Referring Provider Family Medicine; Visit Provider Obstetrics & Gynecology
DX: O13.3 Gestational [pregnancy-induced] hypertension without significant proteinuria, third trimester (principal); O09.523 Supervision of elderly multigravida, third trimester; Z3A.35 35 weeks gestation of pregnancy
CPT/HCPCS: 36415; 59025; 80053; 84550; 85025; G0378; G0379

== ENCOUNTER 2020-02-08 12:45 | Outpatient (CLI) | payer OTHER, MEDICAID, SELFPAY ==
--- NOTE | 2020-02-09 09:45 | PM.OBTRLD ---
Visit Information Visit Information Date of evaluation: 02/08/20 Primary OB Provider: Jonas De Luna Reason for Evaluation: Yes non-stress test Comments/Additional reasons for admission: 34-year-old gestational diabetes repeat in for weekly NST due to gestational diabetes category 1 tracing normal blood pressure [facility] Medical History (Updated 02/05/20 @ 21:59 by Lilliam Villagran MD) ADHD (Acute) Ankle pain (Chronic 2009) Anxiety (Chronic) Asthma (Chronic 2009) Bipolar disorder (Chronic ~2009) Chicken pox (Resolved) Depression (Chronic) Drug abuse in remission (Acute ~2013) Foot pain (Chronic 2011) Generalized headaches (Acute) Gestational diabetes (Resolved 2012) Gestational hypertension (Acute) Hayfever (Chronic 1989) Herpes (Chronic 2011) Recovering alcoholic (Acute ~2013) UTI (urinary tract infection) (Acute) Surgical History Status post delivery (Resolved 04/19/12) Status post delivery (Resolved 07/15/13) Status post delivery (Acute ~2016) [place] teeth extracted (Acute ~2011) Social History marital status: number of children: 3 household members: children pets and animals: No education level: master's degree (in Social Work) occupational status: unemployed current occupational exposures/hazards: No special michelle needs: No Smoking Status: Former smoker alcohol intake: current (ON OCCASION ) substance use type: does not use
== END 2020-02-08 13:20 | disposition home or self-care (01) ==
LOC: LABOR 12:48 → OB 02-09 07:55
PROVIDERS: PCP Family Medicine; Referring Provider Family Medicine; Visit Provider Family Medicine
DX: O24.419 Gestational diabetes mellitus in pregnancy, unspecified control (principal); O09.523 Supervision of elderly multigravida, third trimester; Z3A.36 36 weeks gestation of pregnancy
CPT/HCPCS: 59025; G0378; G0379

== ENCOUNTER → 2020-02-17 09:21 | Outpatient (CLI) | payer OTHER, MEDICAID, SELFPAY ==
[2020-02-18 07:58] LABS: Strep Grp B PCR NEG for Grp B Strep
== END ==
PROVIDERS: PCP Family Medicine; Visit Provider Family Medicine
DX: Z34.03 Encounter for supervision of normal first pregnancy, third trimester (principal); Z3A.36 36 weeks gestation of pregnancy
CPT/HCPCS: 87653

== ENCOUNTER 2020-02-17 10:01 | Outpatient (CLI) | payer OTHER, MEDICAID, SELFPAY ==
--- NOTE | 2020-02-17 10:38 | PM.OBTRLD ---
Visit Information Visit Information Date of evaluation: 02/17/20 Reason for Evaluation: Yes non-stress test Comments/Additional reasons for admission: 34-year-old in for NST. History of preeclampsia gestational diabetes treated with metformin. NST was reviewed today. Reactive category 1. Blood pressure high on initial presentation at of breath patches from walking. Blood pressure then went down. At 125/70. Patient will be discharged and follow-up with weekly NSTs. Monitor closely blood pressure blood glucose signs of contraction. [facility] Medical History (Updated 02/05/20 @ 21:59 by Lilliam Villagran MD) ADHD (Acute) Ankle pain (Chronic 2009) Anxiety (Chronic) Asthma (Chronic 2009) Bipolar disorder (Chronic ~2009) Chicken pox (Resolved) Depression (Chronic) Drug abuse in remission (Acute ~2013) Foot pain (Chronic 2011) Generalized headaches (Acute) Gestational diabetes (Resolved 2012) Gestational hypertension (Acute) Hayfever (Chronic 1989) Herpes (Chronic 2011) Recovering alcoholic (Acute ~2013) UTI (urinary tract infection) (Acute) Surgical History Status post delivery (Resolved 04/19/12) Status post delivery (Resolved 07/15/13) Status post delivery (Acute ~2016) [place] teeth extracted (Acute ~2011) Social History marital status: number of children: 3 household members: children pets and animals: No education level: master's degree (in Social Work) occupational status: unemployed current occupational exposures/hazards: No special michelle needs: No Smoking Status: Former smoker alcohol intake: current (ON OCCASION ) substance use type: does not use
== END 2020-02-17 11:00 | disposition home or self-care (01) ==
LOC: LABOR 10:26 → OB 02-18 08:07
PROVIDERS: PCP Family Medicine; Referring Provider Family Medicine; Visit Provider Family Medicine
DX: O24.415 Gestational diabetes mellitus in pregnancy, controlled by oral hypoglycemic drugs (principal); O13.3 Gestational [pregnancy-induced] hypertension without significant proteinuria, third trimester; O09.523 Supervision of elderly multigravida, third trimester; R07.9 Chest pain, unspecified; Z3A.38 38 weeks gestation of pregnancy
CPT/HCPCS: 59025; 87653; G0378; G0379

== ENCOUNTER → 2020-02-19 15:30 | Outpatient (CLI) | payer OTHER, MEDICAID, SELFPAY ==
[2020-02-19 17:01] LABS: Hematocrit 36.1 % (36-46); Mean Corpuscular HGB Conc 33.4 % (30-36); Mean Corpuscular Hemoglobin 29.4 PG (26-34); Platelet Count 226 X10^3/uL (150-400); Red Cell Distribution Width 14.5 % (11.6-14.8); White Blood Cell Count 9.7 X10^3/uL (4.5-11.0)
[2020-02-19 18:20] LABS: Creatinine Urine Random 112.6 mg/dL
[2020-02-19 18:21] LABS: Alanine Aminotransferase 18 IU/L (<35); Aspartate Aminotransferase 25 IU/L (14-36); Estimated Glomerular Filt Rate > 60.0 mL/min (>60); Lactate Dehydrogenase 416 U/L (313-618)
[2020-02-19 18:24] LABS: Microalbumi Creatinin Ratio Ur 6.2 ug/mg CR (<30); Microalbumin Urine Random 0.7 mg/dL (0-1.6)
== END ==
PROVIDERS: PCP Family Medicine; Referring Provider Family Medicine; Visit Provider Family Medicine
DX: O13.9 Gestational [pregnancy-induced] hypertension without significant proteinuria, unspecified trimester (principal)
CPT/HCPCS: 36415; 82043; 82565; 82570; 83615; 84450; 84460; 85027

== ENCOUNTER 2020-02-21 17:19 | Observation (INO) | payer OTHER, MEDICAID, SELFPAY ==
--- NOTE | 2020-02-21 18:02 | PM.OBTRLD ---
Visit Information Visit Information Date of evaluation: 02/21/20 Primary OB Provider: Jonas De Luna On-call OB Provider: Katie Webb Reason for Evaluation: Yes other Comments/Additional reasons for admission: 34YO @ [id number] by 20wk US presents for evaluation of headache and elevated home blood pressures. RICHARSDON is temporal w/ auditory sensitivity, slightly improved w/ Tylenol 500mg. Has also noticed slightly increased swellling in hands. No vision changes or RUQ pain. Also, c/o chest pain, like really bad heartburn that she's been having a lot lately. No SOB or palpitations. +FM and BH ctx. No VB or LOF. [facility] Medical History (Updated 02/21/20 @ 18:59 by Katie Webb CNM) ADHD (Acute) Ankle pain (Chronic 2009) Anxiety (Chronic) Asthma (Chronic 2009) Bipolar disorder (Chronic ~2009) Chicken pox (Resolved) Depression (Chronic) Drug abuse in remission (Acute ~2013) Foot pain (Chronic 2011) Generalized headaches (Acute) Gestational diabetes (Resolved 2012) Gestational hypertension (Acute) Hayfever (Chronic 1989) Herpes (Chronic 2011) Recovering alcoholic (Acute ~2013) UTI (urinary tract infection) (Acute) Surgical History Status post delivery (Resolved 04/19/12) Status post delivery (Resolved 07/15/13) Status post delivery (Acute ~2016) [place] teeth extracted (Acute ~2011) Family History Brother Age: 37 Asthma Anxiety Father Age: 57 Diabetes mellitus Hypertension High cholesterol Mother Suicide attempt Depression Anxiety Sister Hypertension Anxiety Grandmother Cervical cancer Cancer Stomach cancer Throat cancer Colon cancer Grandfather Cancer Grandmother Diabetes mellitus Social History marital status: number of children: 3 household members: children pets and animals: No education level: master's degree (in Social Work) occupational status: unemployed current occupational exposures/hazards: No special michelle needs: No Smoking Status: Former smoker alcohol intake: current (ON OCCASION ) substance use type: does not use Review of Systems Review of Systems ROS: Yes All systems reviewed with the patient and are negative except as otherwise documented Cardiovascular Cardiovascular: Reports as per HPI, Reports chest pain at rest and Reports leg swelling Exam Vital Signs (past 8 hours): Serial BPs (from [id number]): 142/92, 164/80, 131/62, 137/83, 134/79, 135/82, 158/87 HR 110, T97.1F Temporal Presentation: vertex Neuro DTR's: Rt Patellar: 1+ and Lt Patellar: 1+ Objective Labs Result Diagrams: 02/21/20 18:03 02/21/20 18:03 Evaluation Evaluation Baseline heart rate: 145 Variability: Moderate (11-25) monitor accelerations: Absent monitor decelerations: Absent Uterine Contraction Intensity: Mild Category of Tracing: I Diagnosis, Plan/Disposition Final Diagnosis (1) Gestational hypertension: Current Visit: Yes Status: Acute Problem details: Consulted both and . Labetalol 200mg PO given. Labetalol 200mg BID Rx given, per . Reviewed warning sx and when to call. Discussed Tylenol dosing and safety. RTC 02/23/20 as previously scheduled. Notified patient that will move up her RC/S and let her know. Plan/Disposition Plan: OB Disposition: home
[2020-02-21 18:12] LABS: Add Manual Diff / Slide Review NO; Basophils Absolute Auto 0 /uL (0-100); Basophils Percent Auto 0.4 % (0-2); Eosinophils Absolute Auto 200 /uL (0-450); Eosinophils Percent Auto 1.4 % (2-4); Hematocrit 36.1 % (36-46); Hemoglobin 12.2 g/dL (12.0-16.0); Lymphocytes Absolute Auto 2300 /uL (1100-4500); Lymphocytes Percent Auto 19.9 % (25-40); Mean Corpuscular HGB Conc 33.7 % (30-36); Mean Corpuscular Hemoglobin 29.2 PG (26-34); Mean Corpuscular Volume 86.9 fL (80-100); Monocytes Absolute Auto 900 /uL (0-900); Monocytes Percent Auto 7.7 % (3-14); Neutrophils Absolute Auto 8300 /uL (1500-7000); Neutrophils Percent Auto 70.6 % (50-75); Platelet Count 237 X10^3/uL (150-400); Red Blood Cell Count 4.16 X10^6/uL (4.0-5.2); Red Cell Distribution Width 14.5 % (11.6-14.8); White Blood Cell Count 11.8 X10^3/uL (4.5-11.0)
[2020-02-21 18:22] LABS: Creatinine Urine Random 149.4 mg/dL; Protein (Total) Urine Random 8 mg/dL (0-12); Protein Creatinine Ratio Urine 0.05 GRAM/24H
[2020-02-21 18:24] LABS: Alanine Aminotransferase 19 IU/L (<35); Albumin 3.5 g/dL (3.5-5.0); Alkaline Phosphatase 136 U/L (38-126); Aspartate Aminotransferase 27 IU/L (14-36); BUN Creatinine Ratio 17.3 (6-22); Bilirubin Total 0.3 mg/dL (0.2-1.3); Bilirubin Unconjugated 0.2 mg/dL (0.0-1.1); Blood Urea Nitrogen 9 mg/dL (7-17); Calcium 9.7 mg/dL (8.4-10.2); Carbon Dioxide 21 mmol/L (22-32); Chloride 107 mmol/L (98-107); Estimated Glomerular Filt Rate > 60.0 mL/min (>60); Globulin 3.4 g/dL (1.7-4.1); Glucose 81 mg/dL (70-100); HEMOLYSIS < 15 (0-50); Potassium 3.9 mmol/L (3.4-5.1); Sodium 136 mmol/L (137-145); Total Protein 6.9 g/dL (6.3-8.2); Uric Acid 3.7 mg/dL (2.5-6.2)
[2020-02-21] MEDS: LABETALOL 100 MG TABLET 200 MG PO (19:10)
== END 2020-02-21 19:57 | disposition home or self-care (01) ==
PROVIDERS: Admitting Provider Nurse Practitioner Obstetrics & Gynecology; PCP Family Medicine; Referring Provider Nurse Practitioner Obstetrics & Gynecology; Visit Provider Nurse Practitioner Obstetrics & Gynecology
DX: O13.3 Gestational [pregnancy-induced] hypertension without significant proteinuria, third trimester (principal); Z3A.37 37 weeks gestation of pregnancy; R07.9 Chest pain, unspecified
CPT/HCPCS: 36415; 59025; 59050; 80053; 80076; 82570; 84156; 84550; 85025; G0378; G0379

== ENCOUNTER 2020-02-23 09:51 | Outpatient (CLI) | payer OTHER, MEDICAID, SELFPAY ==
--- NOTE | 2020-02-23 11:20 | PM.OBTRLD ---
Visit Information Visit Information Date of evaluation: 02/23/20 Reason for Evaluation: Yes non-stress test Comments/Additional reasons for admission: NST today HTN DM near tearm. Cat 1. BP looks great cont with NST weekly until delivery. [facility] Medical History (Updated 02/21/20 @ 18:59 by Katie Webb CNM) ADHD (Acute) Ankle pain (Chronic 2009) Anxiety (Chronic) Asthma (Chronic 2009) Bipolar disorder (Chronic ~2009) Chicken pox (Resolved) Depression (Chronic) Drug abuse in remission (Acute ~2013) Foot pain (Chronic 2011) Generalized headaches (Acute) Gestational diabetes (Resolved 2012) Gestational hypertension (Acute) Hayfever (Chronic 1989) Herpes (Chronic 2011) Recovering alcoholic (Acute ~2013) UTI (urinary tract infection) (Acute) Surgical History Status post delivery (Resolved 04/19/12) Status post delivery (Resolved 07/15/13) Status post delivery (Acute ~2016) [place] teeth extracted (Acute ~2011) Social History marital status: number of children: 3 household members: children pets and animals: No education level: master's degree (in Social Work) occupational status: unemployed current occupational exposures/hazards: No special michelle needs: No Smoking Status: Former smoker alcohol intake: current (ON OCCASION ) substance use type: does not use
== END 2020-02-23 11:31 | disposition home or self-care (01) ==
LOC: OB 02-24 08:56
PROVIDERS: PCP Family Medicine; Referring Provider Family Medicine; Visit Provider Family Medicine
DX: O13.3 Gestational [pregnancy-induced] hypertension without significant proteinuria, third trimester (principal); O09.523 Supervision of elderly multigravida, third trimester; Z3A.37 37 weeks gestation of pregnancy
CPT/HCPCS: 59025; 59050; G0378; G0379

== ENCOUNTER 2020-03-01 09:40 | Outpatient (CLI) | payer OTHER, MEDICAID, SELFPAY ==
--- NOTE | 2020-03-01 11:05 | P.TNLD_ITS ---
Visit Information Visit Information Date of evaluation: 03/01/20 Primary OB Provider: Jonas De Luna Reason for Evaluation: Yes non-stress test Comments/Additional reasons for admission: Patient for NST due to diabetes on metformin and maternal hypertension on labetalol. S he has reactive today category 1 blood pressure is well controlled. Patient discharged from the hospital schedule next week. [facility] Medical History (Updated 02/21/20 @ 18:59 by Katie Webb CNM) ADHD (Acute) Ankle pain (Chronic 2009) Anxiety (Chronic) Asthma (Chronic 2009) Bipolar disorder (Chronic ~2009) Chicken pox (Resolved) Depression (Chronic) Drug abuse in remission (Acute ~2013) Foot pain (Chronic 2011) Generalized headaches (Acute) Gestational diabetes (Resolved 2012) Gestational hypertension (Acute) Hayfever (Chronic 1989) Herpes (Chronic 2011) Recovering alcoholic (Acute ~2013) UTI (urinary tract infection) (Acute) Surgical History Status post delivery (Resolved 04/19/12) Status post delivery (Resolved 07/15/13) Status post delivery (Acute ~2016) [place] teeth extracted (Acute ~2011) Social History marital status: number of children: 3 household members: children pets and animals: No education level: master's degree (in Social Work) occupational status: unemployed current occupational exposures/hazards: No special michelle needs: No Smoking Status: Former smoker alcohol intake: current (ON OCCASION ) substance use type: does not use
== END 2020-03-01 10:55 | disposition home or self-care (01) ==
LOC: LABOR 10:54 → OB 03-02 10:58
PROVIDERS: PCP Family Medicine; Referring Provider Family Medicine; Visit Provider Family Medicine
DX: O24.113 Pre-existing type 2 diabetes mellitus, in pregnancy, third trimester (principal); E11.9 Type 2 diabetes mellitus without complications; O13.3 Gestational [pregnancy-induced] hypertension without significant proteinuria, third trimester; O09.523 Supervision of elderly multigravida, third trimester; Z3A.39 39 weeks gestation of pregnancy; Z79.84 Long term (current) use of oral hypoglycemic drugs
CPT/HCPCS: 59025; G0378; G0379

== ENCOUNTER 2020-03-03 21:38 | Observation (INO) | payer OTHER, MEDICAID, SELFPAY | END 2020-03-03 23:51 | disposition home or self-care (01) | LOC: LABOR 21:39 | PROVIDERS: Admitting Provider Family Medicine; PCP Family Medicine; Referring Provider Family Medicine; Visit Provider Family Medicine | DX: O24.913 Unspecified diabetes mellitus in pregnancy, third trimester (principal); O13.3 Gestational [pregnancy-induced] hypertension without significant proteinuria, third trimester; O09.523 Supervision of elderly multigravida, third trimester; Z3A.39 39 weeks gestation of pregnancy; Z79.84 Long term (current) use of oral hypoglycemic drugs | CPT/HCPCS: 59025; 59050; G0378; G0379 ==

== ENCOUNTER 2020-03-04 11:23 | Outpatient (CLI) | payer OTHER, MEDICAID, SELFPAY | END 2020-03-04 12:57 | disposition home or self-care (01) | LOC: LABOR 11:45 → OB 03-07 16:01 | PROVIDERS: PCP Family Medicine; Referring Provider Obstetrics & Gynecology; Visit Provider Obstetrics & Gynecology | DX: O24.913 Unspecified diabetes mellitus in pregnancy, third trimester (principal); O13.3 Gestational [pregnancy-induced] hypertension without significant proteinuria, third trimester; O09.523 Supervision of elderly multigravida, third trimester; Z3A.39 39 weeks gestation of pregnancy; Z79.84 Long term (current) use of oral hypoglycemic drugs | CPT/HCPCS: 59025; G0378; G0379 ==

== ENCOUNTER → 2020-03-08 09:27 | Outpatient (CLI) | payer OTHER, MEDICAID, SELFPAY ==
[2020-03-10 03:39] LABS: COVID19 Sendout Not Detected (Not Detected)
== END ==
PROVIDERS: PCP Family Medicine; Visit Provider Family Medicine
DX: Z01.812 Encounter for preprocedural laboratory examination (principal)
CPT/HCPCS: 87635

== ENCOUNTER 2020-03-08 09:41 | Outpatient (CLI) | payer OTHER, MEDICAID, SELFPAY ==
--- NOTE | 2020-03-08 10:20 | P.TNLD_ITS ---
Visit Information Visit Information Date of evaluation: 03/08/20 Primary OB Provider: Jonas De Luna On-call OB Provider: Whit Varner Reason for Evaluation: Yes non-stress test non-stress test reason: hyper tension/pre-eclampsia Vital Signs Vital Signs: 128/80 PFSH Social History marital status: number of children: 3 household members: children pets and animals: No education level: master's degree (in Social Work) occupational status: unemployed current occupational exposures/hazards: No special michelle needs: No Smoking Status: Former smoker alcohol intake: current (ON OCCASION ) substance use type: does not use Evaluation Evaluation Baseline heart rate: 145 Variability: Moderate (11-25) monitor accelerations: Present monitor decelerations: Absent Category of Tracing: I Diagnosis, Plan/Disposition Final Diagnosis (1) Gestational hypertension: Current Visit: No Status: Acute Problem details: Consulted both and . Labetalol 200mg PO given. Labetalol 200mg BID Rx given, per . Reviewed warning sx and when to call. Discussed Tylenol dosing and safety. RTC 02/23/20 as previously scheduled. Notified patient that will move up her RC/S and let her know. (2) 38 weeks gestation of : Current Visit: Yes Status: Acute Plan/Disposition Plan: Reactive nonstress test. Home follow-up on previously scheduled repeat C- section OB Disposition: home
== END 2020-03-08 10:30 | disposition home or self-care (01) ==
LOC: OB 12:40
PROVIDERS: PCP Family Medicine; Referring Provider Family Medicine; Visit Provider Family Medicine
DX: O13.3 Gestational [pregnancy-induced] hypertension without significant proteinuria, third trimester (principal); Z3A.38 38 weeks gestation of pregnancy; Z01.812 Encounter for preprocedural laboratory examination
CPT/HCPCS: 59025; 87635; G0378; G0379

== ENCOUNTER 2020-03-10 05:43 | Inpatient (IN) | payer OTHER, MEDICAID, SELFPAY ==
--- NOTE | 2020-03-10 | PATH_ITS ---
[facility] Accession Number: [id number] . 01 Material submitted: . fallopian tube - BILATERAL FALLOPIAN TUBE SEGMENTS . 01 Clinical history: . REPEAT W/TUBAL LIGATION . 02 Diagnosis: Bilateral Fallopian Tube Segments, Sterilization: Two complete circumferential fallopian tube segments. Paratubal cysts. [facility] 03/11/2020 1414 Local . 02 Electronically signed: . Dipti Murillo MD, Pathologist NPI- [id number] . 01 Gross description: . Received one formalin-filled container, labeled with the patient's name and labeled bilateral fallopian tube segments. The specimen consists of two cylindrical-shaped portions of tissue and one fimbriated portion of tissue. The first cylindrical-shaped portion of tissue measures 0.6 x 0.5 x 0.4 cm; bisected and entirely submitted in cassette A1. The second cylindrical-shaped portion of tissue measures 0.8 x 0.8 x 0.6 cm; bisected and entirely submitted in cassette A2. The fimbriated portion of tissue measures 2.0 x 1.0 x 0.7 cm; sectioned into four pieces and entirely submitted in cassette A3. ([id number]) /FRR 03/11/2020 0223 Local . 02 Pathologist provided ICD-10: Z30.2 . 02 CPT . 265858 Performed at: 01 [facility] [address] [facility], [place], [place] [id number] MD Iban Heaton MD Phone: [phone] Performed at: 02 [facility] [address] [place], [place] [id number] MD Dipti Murillo MD Phone: [phone]
[2020-03-10 06:15] VITALS: BP 136/79
[2020-03-10 06:29] LABS: Add Manual Diff / Slide Review NO; Basophils Absolute Auto 0 /uL (0-100); Basophils Percent Auto 0.4 % (0-2); Eosinophils Absolute Auto 200 /uL (0-450); Eosinophils Percent Auto 1.7 % (2-4); Hematocrit 37.4 % (36-46); Hemoglobin 12.7 g/dL (12.0-16.0); Lymphocytes Absolute Auto 1900 /uL (1100-4500); Lymphocytes Percent Auto 18.6 % (25-40); Mean Corpuscular HGB Conc 33.9 % (30-36); Mean Corpuscular Hemoglobin 29.4 PG (26-34); Mean Corpuscular Volume 86.6 fL (80-100); Monocytes Absolute Auto 800 /uL (0-900); Monocytes Percent Auto 7.8 % (3-14); Neutrophils Absolute Auto 7200 /uL (1500-7000); Neutrophils Percent Auto 71.5 % (50-75); Platelet Count 232 X10^3/uL (150-400); Red Blood Cell Count 4.32 X10^6/uL (4.0-5.2); Red Cell Distribution Width 15.5 % (11.6-14.8); White Blood Cell Count 10.1 X10^3/uL (4.5-11.0)
--- NOTE | 2020-03-10 06:57 | P.HPOB_ITS ---
OB HPI Date/Time Date of admission: 03/10/20 Date Patient Seen: 03/10/20 Time Patient Seen: 06:58 History of Present Condition Chief complaint: [id number] REPEAT W/TUBAL LIGATION : 4 Para: 3 Estimated Date of Delivery: 03/11/20 Estimated Gestational Age (weeks): 39+ 6 Narrative: Sophie Carter is a 34 year old female G4 para 3 here for repeat section and bilateral tubal ligation. Patient's care has been complicated by little late start of care 20 weeks estimated due date based on ultrasound 03/11/2020 she has a history of 3 previous C-sections. She would like a tubal after this . She had preeclampsia with her 1st and 3rd and gestational diabetes 2nd during this she had gestational diabetes and hypertension and with normal labs patient struggles with depression and has high anxiety.\ labs shows hemoglobin hematocrit 12.7 and 37.4 last platelet count was 232 last BUN and creatinine was 0.5 creatinine and BUN is 9 fasting blood glucoses at home have been in a normal range. Patient has had normal AST ALT mildly elevated alkaline phosphatase and normal lactate dehydrogenase. Her previous urine protein creatinine ratio was 0.05 urine creatinine was 1.49 her recent covered test done 2 days before the surgery was negative hepatitis B C negative. HIV was negative. Genetic screening was negative for down syndrome with trisomy 18 and neural tube deficits. Twenty week ultrasound shows normal anatomical survey. During the last trimester patient was on metformin 500 mg twice a day and labetalol 200 mg twice a day other medications include albuterol as needed sear ch ears seen for allergies vitamins. Reviewed gynecological medical and surgical history. Surgical history includes 3 previous section. Medical history includes bipolar disorder d epression history of drug abuse in remission gestational diabetes gestational hypertension HSV infection history of alcohol abuse disorder. Family history of asthma anxiety diabetes suicide depression and anxiety. Social history she is currently has 3 children she is unemployed she still drinks intermittent alcohol and denies regular substance use. On arrival to the [facility] she says she has had some mild intermittent contractions no spotting or bleeding. Blood pressures been well [facility]. Preoperative instructions were reviewed with patient including operative course reviewed risks benefits of repeat section which is higher with her 1st section. Did review and discuss consent of tubal ligation which she has agreed to. Indications Operative indications ( section): previous uterine surgery History of Present care: initiated at week # Dating criteria: based on 2nd trimester US only Ultrasounds: normal mid trimester US Obstetrical complications: gestational diabetes and gestational hypertension Medical complications: psychiatric Preadmission Labs Blood type: O (+) positive Evaluation Evaluation Laboratory results: Laboratory Tests 03/10/20 06:05 WBC 10.1 RBC 4.32 Hgb 12.7 Hct 37.4 MCV 86.6 MCH 29.4 MCHC 33.9 RDW 15.5 H Plt Count 232 Neut % (Auto) 71.5 Lymph % (Auto) 18.6 L [place] % (Auto) 7.8 Eos % (Auto) 1.7 L Baso % (Auto) 0.4 Neut # (Auto) 7200 H Lymph # (Auto) 1900 [place] # (Auto) 800 Eos # (Auto) 200 Baso # (Auto) 0 PFSH Medical History ADHD (Acute) Ankle pain (Chronic 2009) Anxiety (Chronic) Asthma (Chronic 2009) Bipolar disorder (Chronic ~2009) Chicken pox (Resolved) Depression (Chronic) Drug abuse in remission (Acute ~2013) Foot pain (Chronic 2011) Generalized headaches (Acute) Gestational diabetes (Resolved 2012) Gestational hypertension (Acute) Hayfever (Chronic 1989) Herpes (Chronic 2011) Recovering alcoholic (Acute ~2013) UTI (urinary tract infection) (Acute) Surgical History Status post delivery (Resolved 04/19/12) Status post delivery (Resolved 07/15/13) Status post delivery (Acute ~2016) [place] teeth extracted (Acute ~2011) Family History Brother Age: 37 Asthma Anxiety Father Age: 57 Diabetes mellitus Hypertension High cholesterol Mother Suicide attempt Depression Anxiety Sister Hypertension Anxiety Grandmother Cervical cancer Cancer Stomach cancer Throat cancer Colon cancer Grandfather Cancer Grandmother Diabetes mellitus Social History marital status: number of children: 3 household members: children pets and animals: No education level: master's degree (in Social Work) occupational status: unemployed current occupational exposures/hazards: No special michelle needs: No Smoking Status: Former smoker alcohol intake: current (ON OCCASION ) substance use type: does not use Meds Home Medications and Allergies Home Medications Medication Instructions Recorded Confirmed Type albuterol sulfate 90 mcg/actuation 2 puff INHALATION Q6HP PRN #1 09/01/19 03/10/20 Rx aerosol inhaler inhalation albuterol sulfate 2.5 mg INHALATION Q4-6H PRN #90 ml 09/02/19 03/10/20 Rx cetirizine 10 mg tablet 10 mg PO DAILY #90 tab 10/26/19 03/10/20 Rx prenat.vits,cristopher,vuu-dagg-tssng 1 tab PO DAILY #90 tab 10/27/19 03/10/20 Rx metformin 500 mg tablet 1,000 mg PO BID #120 tab 01/07/20 03/10/20 Rx docusate sodium 100 mg capsule 100 mg PO BID PRN #60 cap 02/23/20 03/10/20 Rx labetalol 100 mg tablet 200 mg PO BID #60 tab 03/01/20 03/10/20 Rx Allergies Allergy/AdvReac Type Severity Reaction Status Date / Time erythromycin base Allergy Mild HIVES Verified 03/10/20 06:19 [ERYTHROMYCIN BASE] latex [LATEX] Allergy Mild RASH Verified 03/10/20 06:19 Exam Vital Signs (past 8 hours): - 03/10/20 06:15 Blood Pressure 136/79 Narrative Exam Narrative: . General: Alert no apparent distress. Affect is appropriate. Deep it is uncomfortable. HEENT: Neck is supple without lymphadenopathy pupils equal round and reactive. Cardio: S1-S2 regular rate and rhythm. Respiratory: Lungs clear to auscultation. Abdomen: Gravid. Extremities: Normal deep tendon reflexes trace edema. [place]: No contractions. heart tones: Category 1 tracing heart tones 135-140 Objective Labs Result Diagrams: 03/10/20 06:05 Labs: Laboratory Results - last 24 hr 03/10/20 06:05 WBC 10.1 RBC 4.32 Hgb 12.7 Hct 37.4 MCV 86.6 MCH 29.4 MCHC 33.9 RDW 15.5 H Plt Count 232 Neut % (Auto) 71.5 Lymph % (Auto) 18.6 L [place] % (Auto) 7.8 Eos % (Auto) 1.7 L Baso % (Auto) 0.4 Neut # (Auto) 7200 H Lymph # (Auto) 1900 [place] # (Auto) 800 Eos # (Auto) 200 Baso # (Auto) 0 Assessment and Plan Assessment and Plan Assessment and Plan narrative: 34-year-old G4 para 336 weeks and 6 days for repeat section and tubal ligation. Preoperative orders were written for. IV was started for + will have an XR 1 available. Hemoglobin hematocrit stable and platelet counts are normal. Patient's vital signs are stable heart tracings or category 1. Patient last ate at 8:00 p.m.. Type and screen will be done patient's blood type O positive. Patient allergic to erythromycin. History and physical in care was done today. Operative course was reviewed with patient her brother is at the bedside. Covid test were negative. Preoperative antibiotics are available an on-call. Reviewed risks of surgery which include bleeding infection injury to bladder or bowel or other internal organs. Discussed the tubal ligation which again she consented. All questions were answered. She has met with anesthesia.
[2020-03-10] MEDS: LACTATED RINGERS 1,000 ML 100 ML IV ×2 (07:50→08:39)
[2020-03-10] MEDS: CEFAZOLIN 2 GM/100 ML FROZ.PIGGY IV (08:12)
--- NOTE | 2020-03-10 08:28 | SUR.OPER ---
Supine on Padded OR bed, head on pillow, safety belt at thigh, arms secured on padded arm boards at <90 degrees abduction. Bump under right buttock. Legs uncrossed with pillow under knees, gel pad to heels, tape over blanket to lower legs.
--- NOTE | 2020-03-10 08:42 | SUR.OPER ---
Viable Baby Boy delivered via at 0822. Cord blood and placenta collected and sent with Labor and valet cashier-Julio Bradshaw RN.
[2020-03-10 09:14] VITALS: BP 101/64; PULSE 71; RESP 12; TEMP 36.9; O2SAT 98
--- NOTE | 2020-03-10 09:16 | PM.OP.1 ---
Operative Date/Time/Diagnoses Date of procedure: 03/10/20 Time of procedure: 09:16 Pre-op diagnosis: 34-year-old G4 para 3 repeat section and bilateral tubal ligation at term Post-op diagnosis: same Procedure & Clinicians Same procedure as scheduled: Yes Operative Notes Findings: Procedure: Repeat Lower segment transverse section with bilateral tubal ligation Consent: Verbal and written informed consent were obtained from the patient placed on the chart. Indications: 34-year-old G4 para 3 term Jerome acquiring repeat section and bilateral tubal ligation Findings: Normal uterus normal ovaries Normal male Anesthesia: Spinal Surgeon: Dr. Jonas De Luna System Development Engineer: Dr. Whit Varner Estimated blood loss: 500 mL Drains: [place] to gravity. IV fluids: 2000 cc LR Description of procedure: The patient was brought to the operating room after her spinal epidural, preparation, and Herm[place] had been performed. The abdomen was prepped and draped in tested for for analgesia. When it was found to be adequate, a lower abdominal Pfannenstiel incision was made with first with a knife and cared down to the fascia with a second knife. The fascia was incised in the midline and extended laterally with a knife. Bleeding points were clamped with hemostats and Bovie coagulated. The rectus muscles were by blunt dissection. The rectus muscles were divided in the midline and the peritoneum was grasped with hemostats and carefully entered with Alan scissors. The incision was extended bilaterally. The bladder blade was then placed. The vesicoperitoneum was grasped with smooth pickups, entered with Metzenbaum scissors, and extended laterally. The bladder flap was created by gently blunt dissection and placed behind the bladder blade. The lower uterine segment was noted to be thin was carefully incised with the scalpel and extended laterally with the fingers. A live was found to be in the vertex position 3 loose nuchal cords. The head was then easily elevated with the hand. The baby was then suctioned and cried immediately, and was handed to the waiting attendant. The placenta was delivered manually. The uterus was explored with a wet lap sponge and found to be clear membranes. The first layer of the uterine closure was with running locking #1 chromic catgut suture. The second layer with an imbricating #1 chromic catgut suture. Hemostasis was carefully checked and found to be satisfactory. The bladder flap was closed with a running 2-0 chromic catgut suture. The fallopian tubes and ovaries were inspected and to be found normal bilaterally. Attention was then taken to the left tube tubal ligation was proceeded on that side as well as the right-sided a modified [place] fashion specimens were sent for pathology. After sponge and needle counts were found to be correct the peritoneum was closed with 2-0 chromic catgut suture. Rectus muscles were approximated in the lower midline. The fascia was closed with a 2 running 0 Vicryl from lateral to midline. The subcutaneous tissue was approximated with interrupted 2.0 plain gut. Bleeding points were Bovie and coagulated. The subcutaneous tissue was approximated with 20 plain gut suture. The skin was closed with 1-0 running subcuticular stitch. Urinary output was adequate and normal patient left to the recovery room in good condition.
[2020-03-10 09:18] VITALS: BP 115/61; PULSE 77; RESP 10; O2SAT 98
[2020-03-10 09:24] VITALS: BP 110/60; PULSE 73; RESP 14; TEMP 36.1; O2SAT 100
[2020-03-10 09:36] VITALS: BP 113/68; PULSE 83; RESP 13; O2SAT 98
--- NOTE | 2020-03-10 09:50 | SUR.PHASEI ---
Patient awake and A/O. Fundus 2 fingers below umbilicus. VASQUEZ's x 4. Anxious to be with baby .
[2020-03-10] MEDS: KETOROLAC 30 MG/ML VIAL IV ×3 (10:30→22:39)
[2020-03-10 21:06] VITALS: BP 139/74; PULSE 96
[2020-03-10] MEDS: LABETALOL 100 MG TABLET 200 MG PO (21:06)
[2020-03-11] MEDS: KETOROLAC 30 MG/ML VIAL IV (06:47)
[2020-03-11 06:54] LABS: Add Manual Diff / Slide Review NO; Basophils Absolute Auto 0 /uL (0-100); Basophils Percent Auto 0.4 % (0-2); Eosinophils Absolute Auto 100 /uL (0-450); Eosinophils Percent Auto 0.6 % (2-4); Hematocrit 31.5 % (36-46); Hemoglobin 10.5 g/dL (12.0-16.0); Lymphocytes Absolute Auto 1200 /uL (1100-4500); Lymphocytes Percent Auto 10.8 % (25-40); Mean Corpuscular HGB Conc 33.4 % (30-36); Mean Corpuscular Hemoglobin 29.2 PG (26-34); Mean Corpuscular Volume 87.2 fL (80-100); Monocytes Absolute Auto 800 /uL (0-900); Monocytes Percent Auto 7.3 % (3-14); Neutrophils Absolute Auto 8700 /uL (1500-7000); Neutrophils Percent Auto 80.9 % (50-75); Platelet Count 186 X10^3/uL (150-400); Red Blood Cell Count 3.61 X10^6/uL (4.0-5.2); Red Cell Distribution Width 15.5 % (11.6-14.8); White Blood Cell Count 10.7 X10^3/uL (4.5-11.0)
--- NOTE | 2020-03-11 07:03 | P.DS_ITS ---
Discharge Providers Provider Date of admission: 03/10/20 05:43 Discharge Date: 03/11/20 Primary care physician: Jonas De Luna MD Consults: 03/10/20 10:06 Consult to Escalator Attendant Routine Comment: Discharge provider: Jonas De Luna MD Summary Hospital Course Date Patient Seen: 03/11/20 Time Patient Seen: 07:09 Procedures: Repeat section Hospital Course: Routine post care. Vital signs have been stable she is afebrile breast-feeding well. Patient is tolerating her diet ambulating good urinary control without [place] catheter no bowel movement but good bowel activity. Vaginal bleeding as anticipated. No significant swelling blood pressures have been well controlled and blood sugars have been doing well. Pain has been well controlled throughout a 02/25. Using Toradol ibuprofen. Requesting to be able to go home today. Patient has no lower extremity edema. Normal heart sounds. Incision is clean dry and intact. Peripartum Data Infant Delivery Method: Section complications: none Status at Discharge Cognitive/behavioral status at discharge: oriented Functional status at discharge: independent ambulation Overall status at discharge: patient is back to baseline Time Spent with Patient Time attestation: Total time spent providing and/or coordinating discharge se rvices: Time spent: Less than 30 minutes Objective Labs Result Diagrams: 03/11/20 06:42 Labs: Laboratory Results - last 24 hr 03/10/20 03/11/20 06:05 06:42 WBC 10.7 RBC 3.61 L Hgb 10.5 L Hct 31.5 L MCV 87.2 MCH 29.2 MCHC 33.4 RDW 15.5 H Plt Count 186 Neut % (Auto) 80.9 H Lymph % (Auto) 10.8 L [place] % (Auto) 7.3 Eos % (Auto) 0.6 L Baso % (Auto) 0.4 Neut # (Auto) 8700 H Lymph # (Auto) 1200 [place] # (Auto) 800 Eos # (Auto) 100 Baso # (Auto) 0 Blood Type O Positive Antibody Screen Negative Exam Vital Signs (past 8 hours): Oxygen Delivery Method Room Air Discharge Plan Discharge Plan Patient Disposition: Home Discharge comment: Follow-up in 7 days for incision check check Dr. De Luna Discharge orders & Medications Prescriptions: New hydrocodone-acetaminophen 5-325 mg Tablet 1 tab PO Q4HR PRN (Reason: Pain, Severe (7-10)) Qty: 20 RF: 0 ibuprofen 600 mg Tablet 600 mg PO Q6HR PRN (Reason: Fever/Mild Pain (1-3)) Qty: 60 RF: 0 labetalol 100 mg Tablet 200 mg PO BID Qty: 60 RF: 0 docusate sodium 250 mg Capsule 250 mg PO DAILY Qty: 20 RF: 0 Continued albuterol sulfate 2.5 mg /3 mL (0.083 %) solution for nebulization 2.5 mg INHALATION Q4-6H PRN (Reason: bronchospasm) Qty: 90 RF: 0 cetirizine 10 mg tablet 10 mg PO DAILY Qty: 90 RF: 3 docusate sodium [Colace] 100 mg capsule 100 mg PO BID PRN (Reason: constipation) Qty: 60 RF: 2 albuterol sulfate [Proventil HFA] 90 mcg/actuation HFA aerosol inhaler 2 puff inhalation Q6HP PRN (Reason: shortness of breath or wheezing) Qty: 1 RF: 11 prenat.vits,cristopher,yjt-zcjv-aapna Tablet 1 tab PO DAILY Qty: 90 RF: 3 Discontinued labetalol 100 mg tablet 200 mg PO BID Qty: 60 RF: 1 metformin 500 mg tablet 1,000 mg PO BID Qty: 120 RF: 3 Follow up/Referrals: Jonas De Luna MD [Primary Care Provider] - Diet/Activity/Treatments Activity: No heavy lifting greater than 20 lb for the 1st 2 weeks. Skin/Wound/Dressing Care Report to your healthcare provider any signs of infection, such as:: chills, fever, increased pain, unusual drainage and unusual redness Visit Report/Discharge Packet Visit Report Forms: Patient Portal/API, Stroke Signs & Symptoms Discharge Data Primary Care Provider: Jonas De Luna
[2020-03-11 10:04] VITALS: BP 129/70; PULSE 95
[2020-03-11] MEDS: LABETALOL 100 MG TABLET 200 MG PO (10:04)
[2020-03-11] MEDS: DOCUSATE 250 MG CAPSULE PO (10:04)
[2020-03-11 14:22] VITALS: BP 125/69; PULSE 92; RESP 17; TEMP 37.2
[2020-03-11] MEDS: IBUPROFEN 600 MG TABLET PO (14:54)
== END 2020-03-11 15:40 | disposition home or self-care (01) | DRG 540 ==
PROVIDERS: Admitting Provider Family Medicine; PCP Family Medicine; Referring Provider Family Medicine; Visit Provider Family Medicine
PROC: 10D00Z1 Extraction of Products of Conception, Low, Open Approach (ICD-10-PCS; CPT 59514; principal; 2020-03-10 07:45)
DX: O34.219 Maternal care for unspecified type scar from previous cesarean delivery (principal); O13.4 Gestational [pregnancy-induced] hypertension without significant proteinuria, complicating childbirth; Z3A.39 39 weeks gestation of pregnancy; Z37.0 Single live birth; Z30.2 Encounter for sterilization; Z03.818 Encounter for observation for suspected exposure to other biological agents ruled out; N83.8 Other noninflammatory disorders of ovary, fallopian tube and broad ligament; O24.425 Gestational diabetes mellitus in childbirth, controlled by oral hypoglycemic drugs; F41.9 Anxiety disorder, unspecified
CPT/HCPCS: 36415; 58611; 59050; 59514; 85025; 86850; 86900; 86901; J0690; J1885; J2274; J2405; J2590; J3010

== ENCOUNTER → 2020-09-02 13:02 | Outpatient (CLI) | payer OTHER, MEDICAID, SELFPAY ==
[2020-09-03 21:49] LABS: COVID19 Sendout Not Detected (Not Detect)
== END ==
PROVIDERS: PCP Family Medicine; Visit Provider Physician Assistant
DX: R05 Cough (principal); R09.89 Other specified symptoms and signs involving the circulatory and respiratory systems; Z11.59 Encounter for screening for other viral diseases
CPT/HCPCS: 87635

== ENCOUNTER 2021-01-08 11:06 | Emergency (ER) | payer OTHER, MEDICAID, SELFPAY ==
[2021-01-08 11:15] VITALS: BP 119/76; PULSE 91; RESP 16; TEMP 36.6; O2SAT 97; BMI 32.4
--- NOTE | 2021-01-08 11:33 | PC.NURSE ---
Pt stated she quit smoking 2 weeks ago and recently has begun coughing up greyish-green sputum. Denies SOB or throat pain.
--- NOTE | 2021-01-08 12:02 | ED_ITS ---
HPI - URI/Sore Throat <ALISSON Fung-BC - Last Filed: 01/08/21 13:12> General Chief Complaint: Upper Respiratory Symptoms Stated Complaint: Sore throat/ Bug bite on leg Time Seen by Provider: 01/08/21 11:35 Source: patient Mode of arrival: Ambulatory Limitations: no limitations History of Present Illness HPI Narrative: The patient is a 35-year-old female former smoker with history of bipolar disorder, facial cellulitis who presents with a chief complaint of a sore throat on and off for the past week and half. She complains of some postnasal drip, and chills as well. Denies any fevers. She states that she recently quit smoking, which she has done with every but has never tried will not . She denies any current . She has an ENT referral pending. Does complain of some postnasal drip. No new ear pain. She is concerned about COVID as multiple children go to school several days a week. Related Data Home Medications Medication Instructions Recorded Confirmed clonidine HCl 0.1 mg tablet 0.2 mg PO BEDTIME tab 08/23/20 12/13/20 lamotrigine 25 mg tablet 25 mg PO ONCE 08/23/20 12/13/20 Previous Rx's Medication Instructions Recorded albuterol sulfate 90 mcg/actuation 2 puff INHALATION Q6HP PRN #1 09/01/19 aerosol inhaler inhalation albuterol sulfate 2.5 mg INHALATION Q4-6H PRN #90 ml 09/02/19 Allergies Allergy/AdvReac Type Severity Reaction Status Date / Time erythromycin base Allergy Mild HIVES Verified 12/13/20 09:07 [ERYTHROMYCIN BASE] latex [LATEX] Allergy Mild RASH Verified 12/13/20 09:07 Review of Systems <ALISSON Fung-BC - Last Filed: 01/08/21 13:12> Review of Systems Narrative: GENERAL: Denies chills, fatigue, malaise, fever, sweats. HEENT: see HPI RESPIRATORY: Denies dyspnea, cough, wheezing, hemoptysis, sputum. CARDIOVASCULAR: Denies chest pain, palpitations, orthopnea, edema, GASTROINTESTINAL: Denies nausea, vomiting, abdominal pain, diarrhea, constipation, melena. : Denies dysuria, frequency, incontinence, hematuria, urinary retention. MUSCULOSKELETAL: denies weakness, joint pain, or bony pain SKIN: Denies rash, skin lesions, or other NEUROLOGIC: Denies weakness, headache, numbness, change in speech, confusion, seizures, incoordination. PSYCHIATRIC: No concerning psychosocial issues. 12 point review of systems is negative except for those stated above Patient History <PATRIZIA Fung - Last Filed: 01/08/21 13:12> Medical History (Updated 01/08/21 @ 13:04 by PATRIZIA Fung) ADHD Ankle pain (2009) Anxiety Asthma (2009) Bipolar disorder (~2009) Chicken pox Depression Drug abuse in remission (~2013) Foot pain (2011) Generalized headaches Gestational diabetes (2012) Gestational hypertension Hayfever (1989) Herpes (2011) Recovering alcoholic (~2013) UTI (urinary tract infection) Surgical History Status post delivery (04/19/12) Status post delivery (07/15/13) Status post delivery (~2016) [place] teeth extracted (~2011) Family History Brother Age: 38 Asthma Anxiety Father Age: 58 Diabetes mellitus Hypertension High cholesterol Mother Suicide attempt Depression Anxiety Sister Hypertension Anxiety Grandmother Cervical cancer Cancer Stomach cancer Throat cancer Colon cancer Grandfather Cancer Grandmother Diabetes mellitus Social History marital status: number of children: 3 household members: children pets and animals: No education level: master's degree occupational status: unemployed current occupational exposures/hazards: No special michelle needs: No Smoking Status: Former smoker alcohol intake: current substance use type: does not use Smoking Status: Former smoker alcohol intake frequency: 0-2 drinks per day Substance Use Type: does not use Exam <PATRIZIA Fung - Last Filed: 01/08/21 13:12> Narrative Exam Narrative: GENERAL: This is a well-nourished, well-developed patient, in no acute distress HEAD: Atraumatic. Normocephalic. No temporal or scalp tenderness. EYES: Pupils equal round and reactive. Extraocular motions intact. No scleral icterus. No injection or drainage. ENT: Nose without bleeding, purulent drainage or septal hematoma. Throat without erythema, tonsillar hypertrophy or exudate. Uvula midline. Airway patent. Slight cobblestoning noted. Bilateral TMs pearly prince NECK: Trachea midline. No JVD or lymphadenopathy. Supple, nontender, no meningeal signs. CARDIOVASCULAR: Regular rate and rhythm RESPIRATORY: Clear to auscultation. Breath sounds equal bilaterally. No wheezes, rales, or rhonchi. No cough. No increased respiratory effort. No accessory muscle use. GASTROINTESTINAL: Abdomen soft, non-tender, nondistended. No hepato- splenomegaly, or palpable masses. No guarding. EXTREMITIES: No clubbing, cyanosis, or edema. No joint tenderness, effusion, or edema noted. BACK: Nontender without deformity or crepitance. No flank tenderness. NEURO: AOx3. SKIN: No rash or erythema on visible skin Initial Vital Signs Initial Vital Signs: Vital Signs Temperature 97.9 F 01/08/21 11:15 Pulse Rate 91 H 01/08/21 11:15 Respiratory Rate 16 01/08/21 11:15 Blood Pressure 119/76 01/08/21 11:15 Pulse Oximetry 97 01/08/21 11:15 <Davey Damon MD - Last Filed: 01/08/21 18:45> Initial Vital Signs Initial Vital Signs: Vital Signs Temperature 97.9 F 01/08/21 11:15 Pulse Rate 91 H 01/08/21 11:15 Respiratory Rate 16 01/08/21 11:15 Blood Pressure 119/76 01/08/21 11:15 Pulse Oximetry 97 01/08/21 11:15 Course <PATRIZIA Fung - Last Filed: 01/08/21 13:12> Orders Ordered: ED Orders 01/08/21 11:55 Throat Culture Stat 01/08/21 11:56 COVID19 Stat Vital Signs Vital signs: Vital Signs - 8 hr 01/08/21 11:15 01/08/21 13:07 Temperature 97.9 F Pulse Rate 91 H 90 Respiratory Rate 16 16 Blood Pressure 119/76 116/72 Pulse Oximetry 97 97 <Davey Damon MD - Last Filed: 01/08/21 18:45> Orders Ordered: ED Orders 01/08/21 11:55 Throat Culture Stat 01/08/21 11:56 COVID19 Stat Vital Signs Vital signs: Vital Signs - 8 hr 01/08/21 11:15 01/08/21 13:07 Temperature 97.9 F Pulse Rate 91 H 90 Respiratory Rate 16 16 Blood Pressure 119/76 116/72 Pulse Oximetry 97 97 MDM - URI/Sore Throat <Emily LeavittALISSON-BC - Last Filed: 01/08/21 13:12> Lab Data Labs: Lab Results 01/08/21 Range/Units 11:56 SARS-CoV-2 (PCR) Negative (Negative) Point of Care Testing Rapid Strep A Negative MDM Narrative Medical decision making narrative: The patient is a 35-year-old female who presents with a chief complaint of weak and half of sore throat. No visible abnormality other than slight cobblestoning. She appears well and nontoxic, vital signs are stable, she is afebrile no signs of systemic illness. She has a negative rapid COVID, negative strep, throat culture is pending at this time. I encouraged [id number] remedies such as NeilMed sinus rinse Flonase etcetera while we wait for her throat culture to return. Discussed coming back to ER for acute concerns. Discussed follow-up with primary care provider in the next few days. Patient has no questions or concerns upon discharge states understanding of return precautions as well as follow-up care. <Davey Damon MD - Last Filed: 01/08/21 18:45> Lab Data Labs: Lab Results 01/08/21 Range/Units 11:56 SARS-CoV-2 (PCR) Negative (Negative) Point of Care Testing Rapid Strep A Negative Discharge Plan Departure Patient Disposition: Home Clinical Impression: Pharyngitis Qualifiers: Pharyngitis/tonsillitis etiology: unspecified etiology Qualified Code(s): J02.9 - Acute pharyngitis, unspecified Instructions: DI for Pharyngitis/Tonsillopharyngitis -- Adult, DI for Viral Pharyngitis, Can COVID-19 be prevented? Activity Restrictions/Additional Instructions: Thank you for trusting us with your care today. As discussed, your rapid strep came back negative, as did your COVID test. Your throat culture will result in a few days and we will call you if we need to add any medications. As discussed, please use [id number]-fgf-huxmeab remedies including NeilMed sinus rinse, Neti pot, allergy medicine etcetera Please come back to the emergency department for any acute concerns. Please follow-up with primary care provider in the next few days. Congratulations on your smoking cessation! Prescriptions: No Action albuterol sulfate 2.5 mg /3 mL (0.083 %) solution for nebulization 2.5 mg INHALATION Q4-6H PRN (Reason: bronchospasm) Qty: 90 RF: 0 clonidine HCl 0.1 mg tablet 0.2 mg PO BEDTIME RF: 0 lamotrigine [Lamictal] 25 mg tablet 25 mg PO ONCE RF: 0 albuterol sulfate [Proventil HFA] 90 mcg/actuation HFA aerosol inhaler 2 puff inhalation Q6HP PRN (Reason: shortness of breath or wheezing) Qty: 1 RF: 11 Referrals: Jonas De Luna MD [Primary Care Provider] - <Davey Damon MD - Last Filed: 01/08/21 18:45> Cosign ED Attending Cosignature Attestation: I was immediately available in the department for consultation. This documentation has been reviewed and I agree with assessment and plan. Supervised by Davey Damon MD
[2021-01-08 12:30] LABS: COVID19 -Nasal RAPID Negative (Negative)
[2021-01-08 13:07] VITALS: BP 116/72; PULSE 90; RESP 16; O2SAT 97
== END 2021-01-08 13:10 | disposition home or self-care (01) ==
PROVIDERS: Emergency Provider Nurse Practitioner Family; PCP Family Medicine
DX: J02.9 Acute pharyngitis, unspecified (principal); R09.82 Postnasal drip; F31.9 Bipolar disorder, unspecified; Z20.822 Contact with and (suspected) exposure to COVID-19
CPT/HCPCS: 87070; 87635; 87880; 99281; 99282; C9803

== ENCOUNTER 2021-06-11 21:54 | Emergency (ER) | payer OTHER, MEDICAID, SELFPAY ==
[2021-06-11 21:54] VITALS: BP 143/92; PULSE 92; RESP 16; TEMP 36.7; O2SAT 99
[2021-06-11 22:31] LABS: Add Manual Diff / Slide Review NO; Basophils Absolute Auto 100 /uL (0-100); Basophils Percent Auto 0.9 % (0-2); Eosinophils Absolute Auto 300 /uL (0-450); Eosinophils Percent Auto 3.1 % (2-4); Hematocrit 39.2 % (36-46); Hemoglobin 13.4 g/dL (12.0-16.0); Lymphocytes Absolute Auto 3300 /uL (1100-4500); Lymphocytes Percent Auto 29.9 % (25-40); Mean Corpuscular HGB Conc 34.1 % (30-36); Mean Corpuscular Hemoglobin 30.8 PG (26-34); Mean Corpuscular Volume 90.4 fL (80-100); Monocytes Absolute Auto 900 /uL (0-900); Monocytes Percent Auto 7.9 % (3-14); Neutrophils Absolute Auto 6400 /uL (1500-7000); Neutrophils Percent Auto 58.2 % (50-75); Platelet Count 231 X10^3/uL (150-400); Red Blood Cell Count 4.34 X10^6/uL (4.0-5.2); Red Cell Distribution Width 14.3 % (11.6-14.8); White Blood Cell Count 10.9 X10^3/uL (4.5-11.0)
[2021-06-11 22:43] LABS: Alanine Aminotransferase 22 IU/L (<35); Albumin 4.2 g/dL (3.5-5.0); Albumin Globulin Ratio 1.2 (1.0-2.8); Alkaline Phosphatase 98 U/L (38-126); Aspartate Aminotransferase 27 IU/L (14-36); Bilirubin Total 0.3 mg/dL (0.2-1.3); Blood Urea Nitrogen 24 mg/dL (7-17); Calcium 9.6 mg/dL (8.4-10.2); Carbon Dioxide 24 mmol/L (22-32); Chloride 106 mmol/L (98-107); Estimated Glomerular Filt Rate > 60.0 mL/min (>60); Globulin 3.4 g/dL (1.7-4.1); Glucose 92 mg/dL (70-100); HEMOLYSIS 18 (0-50); Lipase 153 U/L (23-300); Potassium 4.2 mmol/L (3.4-5.1); Sodium 138 mmol/L (137-145); Total Protein 7.6 g/dL (6.3-8.2)
--- NOTE | 2021-06-11 22:45 | ED.BACK ---
HPI - Back Pain/Injury General Chief Complaint: Back Pain/Injury Stated Complaint: RIGHT BACK PAIN TOWARDS FRONT Time Seen by Provider: 06/11/21 22:16 Source: patient History of Present Illness HPI Narrative: Patient is a 35-year-old female here for evaluation bilateral upper abdomen and epigastric abdominal pain and also pain in the middle of her back. She states that it did get somewhat worse with eating earlier today. No nausea vomiting. No fevers. No urinary symptoms. No change in bowel habits. No vaginal bleeding. No cough. No shortness of breath. Was never had anything like this in the past. No prior abdominal surgeries. Has not tried anything for symptoms prior to arrival. Related Data Home Medications Medication Instructions Recorded Confirmed clonidine HCl 0.1 mg tablet 0.2 mg PO BEDTIME tab 08/23/20 12/13/20 lamotrigine 25 mg tablet (Lamictal) 25 mg PO ONCE 08/23/20 12/13/20 Previous Rx's Medication Instructions Recorded albuterol sulfate 90 mcg/actuation 2 puff INHALATION Q6HP PRN #1 09/01/19 aerosol inhaler (Proventil HFA) inhalation albuterol sulfate 2.5 mg INHALATION Q4-6H PRN #90 ml 09/02/19 Allergies Allergy/AdvReac Type Severity Reaction Status Date / Time erythromycin base Allergy Mild HIVES Verified 06/11/21 22:07 [ERYTHROMYCIN BASE] latex [LATEX] Allergy Mild RASH Verified 06/11/21 22:07 Review of Systems Constitutional Constitutional: Reports system reviewed and no additional complaints, except as documented Cardiovascular Cardiovascular: Reports system reviewed and no additional complaints, except as documented Respiratory Respiratory: Reports system reviewed and no additional complaints, except as documented Gastrointestinal Gastrointestinal: Reports system reviewed and no additional complaints, except as documented Genitourinary Genitourinary: Reports system reviewed and no additional complaints, except as documented Musculoskeletal Musculoskeletal: Reports system reviewed and no additional complaints, except as documented Integumentary/Breasts Skin/Breast: Reports system reviewed and no additional complaints, except as documented Neurologic Neurologic: Reports system reviewed and no additional complaints, except as documented Hematologic/Lymphatic On Anticoagulants: No Patient History Medical History ADHD Ankle pain (2009) Anxiety Asthma (2009) Bipolar disorder (~2009) Chicken pox Depression Drug abuse in remission (~2013) Foot pain (2011) Generalized headaches Gestational diabetes (2012) Gestational hypertension Hayfever (1989) Herpes (2011) Recovering alcoholic (~2013) UTI (urinary tract infection) Surgical History Status post delivery (04/19/12) Status post delivery (07/15/13) Status post delivery (~2016) [place] teeth extracted (~2011) Family History Brother Age: 38 Asthma Anxiety Father Age: 58 Diabetes mellitus Hypertension High cholesterol Mother Suicide attempt Depression Anxiety Sister Hypertension Anxiety Grandmother Cervical cancer Cancer Stomach cancer Throat cancer Colon cancer Grandfather Cancer Grandmother Diabetes mellitus Social History marital status: number of children: 3 household members: children pets and animals: No education level: master's degree occupational status: unemployed current occupational exposures/hazards: No special michelle needs: No Smoking Status: Former smoker alcohol intake: current substance use type: does not use Smoking Status: Former smoker alcohol intake frequency: 0-2 drinks per day Substance Use Type: does not use Exam Initial Vital Signs Initial Vital Signs: Vital Signs Temperature 98.1 F 06/11/21 21:54 Pulse Rate 92 H 06/11/21 21:54 Respiratory Rate 16 06/11/21 21:54 Blood Pressure 143/92 H 06/11/21 21:54 Pulse Oximetry 99 06/11/21 21:54 Const General: cooperative and healthy appearing [facility] Head: normal to inspection and normocephalic Eyes General: appearance normal, both eyes and all related structures Resp Effort & Inspection: normal respiratory effort Auscultation: clear to auscultation bilaterally Cardio Rate: regular rate Rhythm: regular rhythm GI Inspection: normal to inspection Palpation: tender (Upper abdomen, negative Blancas sign) Back/Spine/Pelvis Thoracic/Lumbar Spine: No thoracic spinal tenderness and No lumbar spinal tenderness Skin General: no rashes or lesions noted Neuro General: patient alert, patient awake, patient oriented x3 and moves all extremities Extrem General: normal to inspection and capillary refill normal Psych Appearance: grossly normal and well kempt Course Orders Ordered: ED Orders 06/11/21 22:23 Complete Blood Count AUTO DIFF Stat Comprehensive Metabolic Panel Stat Lipase Stat Discontinued Medications Al Hydrox/Mg Hydrox/Simethicone 20 ml/ Lidocaine HCl 15 ml 0 ml PO NOW ONE Stop: 06/11/21 22:46 Last Admin: 06/11/21 22:53 Dose: 20 ml Documented by: DUC Vital Signs Vital signs: Vital Signs - 8 hr 06/11/21 21:54 06/11/21 23:17 Temperature 98.1 F Pulse Rate 92 H 100 H Respiratory Rate 16 16 Blood Pressure 143/92 H 142/75 H Pulse Oximetry 99 98 MDM - Back Pain/Injury Lab Data Attestation: I reviewed the patient's lab results. Result diagrams: 06/11/21 22:23 06/11/21 22:23 Labs: Lab Results 06/11/21 06/11/21 Range/Units 22:23 22:23 WBC 10.9 (4.5-11.0) X10^3/uL RBC 4.34 (4.0-5.2) X10^6/uL Hgb 13.4 (12.0-16.0) g/dL Hct 39.2 (36-46) % MCV 90.4 (80-100) fL MCH 30.8 (26-34) PG MCHC 34.1 (30-36) % RDW 14.3 (11.6-14.8) % Plt Count 231 (150-400) X10^3/uL Neut % (Auto) 58.2 (50-75) % Lymph % (Auto) 29.9 (25-40) % Waller % (Auto) 7.9 (3-14) % Eos % (Auto) 3.1 (2-4) % Baso % (Auto) 0.9 (0-2) % Neut # (Auto) 6400 (0466-8358) /uL Lymph # (Auto) 3300 (4627-7734) /uL Waller # (Auto) 900 (0-900) /uL Eos # (Auto) 300 (0-450) /uL Baso # (Auto) 100 (0-100) /uL Sodium 138 (137-145) mmol/L Potassium 4.2 (3.4-5.1) mmol/L Chloride 106 (98-107) mmol/L Carbon Dioxide 24 (22-32) mmol/L BUN 24 H (7-17) mg/dL Creatinine 0.80 (0.52-1.04) mg/dL Estimated GFR > 60.0 (>60) mL/min BUN/Creatinine Ratio 30.0 H (6-22) Glucose 92 (70-100) mg/dL Calcium 9.6 (8.4-10.2) mg/dL Total Bilirubin 0.3 (0.2-1.3) mg/dL AST 27 (14-36) IU/L ALT 22 (<35) IU/L Alkaline Phosphatase 98 (38-126) U/L Total Protein 7.6 (6.3-8.2) g/dL Albumin 4.2 (3.5-5.0) g/dL Globulin 3.4 (1.7-4.1) g/dL Albumin/Globulin Ratio 1.2 (1.0-2.8) Lipase 153 (23-300) U/L Point of Care Testing Test Results Negative Urine Dip Bedside Urine Glucose Negative Bedside Urine Bilirubin - Negative Bedside Urine Ketone - Negative Urine Specific Rowley 1.020 Bedside Urine Occult Blood - Negative Bedside Urine pH 6.5 Bedside Urine Protein - Negative Bedside Urine Urobilinogen - Negative Bedside Urine Nitrite - Negative Bedside Urine Leukocytes - Negative Esterase MDM Narrative Medical decision making narrative: Patient is a very reassuring exam and very reassuring labs. Low suspicion for gallbladder pathology. Low suspicion for pancreatitis. This could potentially his stomach ulcer. Low suspicion for pneumonia. She is a clear lung exam and is afebrile. If elevation hold on further workup for now. Given her exam I also feel that we should hold on a CT scan for now. Will send home with instructions to start medicines for a stomach ulcer to see if this does not improve her symptoms. She was given strict return precautions and follow-up instructions. She expressed understanding and agreement. Discharge Plan Departure Patient Disposition: Home Clinical Impression: Abdominal pain Instructions: DI for Abdominal Pain-Adult Activity Restrictions/Additional Instructions: Your blood work and exam here in the emergency department are very reassuring. I recommend that you start taking a medicine called Pepcid/famotidine. This is a tablet you can purchase [id number]. Is 1 time a day. Taken for the next several days to see if it improves your symptoms. If your symptoms worsen please return to the emergency department. Contact your primary doctor for follow-up. Return to the emergency department for any new or worsening symptoms Prescriptions: No Action albuterol sulfate 2.5 mg /3 mL (0.083 %) solution for nebulization 2.5 mg INHALATION Q4-6H PRN (Reason: bronchospasm) Qty: 90 RF: 0 clonidine HCl 0.1 mg tablet 0.2 mg PO BEDTIME RF: 0 lamotrigine [Lamictal] 25 mg tablet 25 mg PO ONCE RF: 0 albuterol sulfate [Proventil HFA] 90 mcg/actuation HFA aerosol inhaler 2 puff inhalation Q6HP PRN (Reason: shortness of breath or wheezing) Qty: 1 RF: 11 Referrals: Jonas De Luna MD [Primary Care Provider] -
[2021-06-11] MEDS: MAG HYDROX/ALUMINUM/SIMETH SUS 20 ML, LIDOCAINE VISCOUS 2% 15 ML PO (22:53)
[2021-06-11 23:17] VITALS: BP 142/75; PULSE 100; RESP 16; O2SAT 98
== END 2021-06-11 23:17 | disposition home or self-care (01) ==
PROVIDERS: Emergency Provider Emergency Medicine; PCP Family Medicine
DX: R10.13 Epigastric pain (principal)
CPT/HCPCS: 36415; 80053; 81003; 81025; 83690; 85025; 99283; 99284